=== PATIENT | female | born 1975 | race Caucasian/White ===

== ENCOUNTER → 2018-08-25 11:57 | Outpatient (CLI) | payer BC, SELFPAY ==
--- NOTE | 2018-08-25 | DI.MG.S_ITS ---
BILATERAL DIGITAL SCREENING MAMMOGRAM 3D/2D WITH CAD: 08/25/2018 CLINICAL: Routine screening. Baseline exam. Family history of breast cancer. No prior exams were available for comparison. The tissue of both breasts is heterogeneously dense. This may lower the sensitivity of mammography. Current study was also evaluated with a Computer Aided Detection (CAD) system. There is an oval focal asymmetry in the right breast at 1 o'clock middle depth. No other significant masses, calcifications, or other findings are seen in either breast. IMPRESSION: INCOMPLETE: NEEDS ADDITIONAL IMAGING EVALUATION The oval focal asymmetry in the right breast is indeterminate. Additional views with possible ultrasound are recommended. NOTE: For mammograms, a report in lay terms will be sent to the patient. Approximately 15% of breast malignancies will not be visualized mammographically. In the management of a palpable breast mass, a negative mammogram must not discourage biopsy of a clinically suspicious lesion. Electronically Signed By: Marquita roberts/sidra:08/25/2018 13:25:35 letter sent: Additional Imaging Needed ACR BI-RADS Category 0: Incomplete [id number]
== END ==
PROVIDERS: Visit Provider Nurse Practitioner Family
DX: Z12.31 Encounter for screening mammogram for malignant neoplasm of breast (principal); Z80.3 Family history of malignant neoplasm of breast
CPT/HCPCS: 77063; 77067

== ENCOUNTER → 2018-09-15 14:10 | Outpatient (CLI) | payer BC, SELFPAY ==
--- NOTE | 2018-09-15 | DI.MG.S_ITS ---
UNILATERAL RIGHT DIGITAL DIAGNOSTIC MAMMOGRAM 3D/2D WITH ADDITIONAL VIEWS: 09/15/2018 CLINICAL: Additional evaluation requested from prior study. Comparison is made to exams dated: 02/11/2011 mammogram - [facility], 02/11/2011 [facility], and 08/25/2018 mammogram - [facility]. The tissue of right breast is heterogeneously dense. This may lower the sensitivity of mammography. There is an oval low density asymmetry with an obscured and indistinct margin in the right breast at 1 o'clock middle depth. This is less prominent. No other significant masses or calcifications are seen in the breast. IMPRESSION: INCOMPLETE: NEEDS ADDITIONAL IMAGING EVALUATION The oval low density asymmetry in the right breast is indeterminate. An ultrasound is recommended. This exam was interpreted at Station ID: [id number]. NOTE: For mammograms, a report in lay terms will be sent to the patient. Approximately 15% of breast malignancies will not be visualized mammographically. In the management of a palpable breast mass, a negative mammogram must not discourage biopsy of a clinically suspicious lesion. Electronically Signed By: Frank loya/sidra:09/15/2018 14:41:12 letter sent: Need Ultrasound ACR BI-RADS Category 0: Incomplete [id number]
--- NOTE | 2018-09-15 | DI.US.S_ITS ---
LIMITED ULTRASOUND OF RIGHT BREAST: 09/15/2018 CLINICAL: Patient returns today to evaluate a density in the right breast. Comparison is made to exams dated: 09/15/2018 mammogram, 08/25/2018 mammogram - [facility], and 02/11/2011 mammogram - [facility]. Color flow and real-time ultrasound of the right breast upper inner quadrant were performed on the areas of interest. There is 0.7 cm x 0.4 cm x 0.9 cm oval complicated cyst in the right breast at 2 o'clock middle depth. This oval complicated cyst is hypoechoic with internal echoes and partially indistinct margins. This correlates with mammography findings. Color flow imaging demonstrates that there is no vascularity present. IMPRESSION: PROBABLY BENIGN The 0.7 cm x 0.4 cm x 0.9 cm oval complicated cyst in the right breast is consistent with a complicated cyst and is probably benign. A follow-up ultrasound in 6 months is recommended. A follow-up ultrasound in 6 months is recommended to demonstrate stability. This exam was interpreted at Station ID: [id number]. Electronically Signed By: Frank loya/:09/17/2018 14:04:55 letter sent: Followup Recommended Ultrasound BI-RADS: 3 Probably benign
== END ==
PROVIDERS: Visit Provider Nurse Practitioner Family
DX: R92.8 Other abnormal and inconclusive findings on diagnostic imaging of breast (principal); N60.01 Solitary cyst of right breast
CPT/HCPCS: 76642; 77065; G0279

== ENCOUNTER → 2018-09-20 19:45 | Outpatient (CLI) | payer BC, SELFPAY | PROVIDERS: Visit Provider Physician Assistant | DX: R30.0 Dysuria (principal) | CPT/HCPCS: 87210 ==

== ENCOUNTER → 2018-09-24 16:10 | Outpatient (CLI) | payer BC, SELFPAY ==
[2018-09-24 16:18] LABS: RBC Urine None Seen (0-5/HPF)
[2018-09-24 16:33] LABS: Appearance Urine UA CLEAR; Bilirubin Urine UA NEGATIVE (NEGATIVE); Color Urine UA YELLOW; Glucose Urine UA TRACE g/dL (Normal); Ketones Urine UA 2+ (NEGATIVE); Leukocyte Esterase Urine UA NEGATIVE (NEGATIVE); Nitrite Urine UA NEGATIVE (Negative); Occult Blood Urine UA NEGATIVE (Negative); Protein Urine UA NEGATIVE (Negative); Specific Gravity Urine UA 1.025 (1.000-1.035); Urobilinogen Urine UA 0.2 E.U./dL (0.2)
[2018-09-24 16:50] LABS: Bacteria Urine Few (2-10); Culture Indicated Urine Cult Not Indicated; Mucus Urine 1+ (Negative); Squamous Epithelial Cell Urine 1-5 /HPF; WBC Urine 0-1/HPF (0-5/HPF)
== END ==
PROVIDERS: PCP Nurse Practitioner Family; Visit Provider Nurse Practitioner Family
DX: N02.9 Recurrent and persistent hematuria with unspecified morphologic changes (principal)
CPT/HCPCS: 81001

== ENCOUNTER → 2019-04-05 12:33 | Outpatient (CLI) | payer BC, SELFPAY ==
--- NOTE | 2019-04-05 | DI.US.S_ITS ---
ULTRASOUND OF RIGHT BREAST: 04/05/2019 CLINICAL: 6 month follow-up of cysts. Comparison is made to exams dated: 09/15/2018 ultrasound, 09/15/2018 mammogram, 08/25/2018 mammogram - [facility], and 02/11/2011 mammogram - [facility]. Color flow and real-time ultrasound of the right breast were performed. Macias scale images of the real-time examination were reviewed. There is a stable 0.8 cm x 0.6 cm x 0.9 cm oval simple cyst in the right breast at 2 o'clock middle depth. This oval simple cyst is anechoic with posterior acoustic enhancement. Color flow imaging demonstrates that there is no vascularity present. IMPRESSION: BENIGN There is no sonographic evidence of malignancy. The stable 0.8 cm x 0.6 cm x 0.9 cm oval simple cyst in the right breast is benign. Return to annual mammogram screening schedule is recommended. Findings and recommendations were conveyed to the patient at time of exam. This exam was interpreted at Station ID: [id number]. Electronically Signed By: Brittany hess/:04/05/2019 14:59:25 letter sent: Normal Exam Ultrasound BI-RADS: 2 Benign
== END ==
PROVIDERS: PCP Nurse Practitioner Family; Visit Provider Nurse Practitioner Family
DX: R92.8 Other abnormal and inconclusive findings on diagnostic imaging of breast (principal); N60.01 Solitary cyst of right breast
CPT/HCPCS: 76642

== ENCOUNTER → 2020-07-12 16:10 | Outpatient (CLI) | payer BC, SELFPAY ==
--- NOTE | 2020-07-12 16:11 | DI.MG.S_ITS ---
BILATERAL DIGITAL SCREENING MAMMOGRAM 3D/2D WITH CAD: 07/12/2020 CLINICAL: Routine screening. Family history of breast cancer. Comparison is made to exams dated: 09/15/2018 mammogram, 08/25/2018 mammogram - [facility], and 02/11/2011 mammogram - [facility]. The tissue of both breasts is heterogeneously dense. This may lower the sensitivity of mammography. Current study was also evaluated with a Computer Aided Detection (CAD) system. No significant masses, calcifications, or other findings are seen in either breast. There has been no significant interval change. IMPRESSION: NEGATIVE There is no mammographic evidence of malignancy. A 1 year screening mammogram is recommended. This exam was interpreted at Station ID: [id number]. NOTE: For mammograms, a report in lay terms will be sent to the patient. Approximately 15% of breast malignancies will not be visualized mammographically. In the management of a palpable breast mass, a negative mammogram must not discourage biopsy of a clinically suspicious lesion. Electronically Signed By: Zeyad sewell/sidra:07/12/2020 16:57:47 letter sent: Normal Exam ACR BI-RADS Category 1: Negative [id number]
== END ==
PROVIDERS: PCP Internal Medicine; Referring Provider Internal Medicine; Visit Provider Internal Medicine
DX: Z12.31 Encounter for screening mammogram for malignant neoplasm of breast (principal); Z80.3 Family history of malignant neoplasm of breast
CPT/HCPCS: 77063; 77067

== ENCOUNTER → 2020-10-01 08:29 | Outpatient (CLI) | payer BC, SELFPAY ==
--- NOTE | 2020-10-01 09:39 | DI.CT.S_ITS ---
PROCEDURE: CT ABDOMEN PELVIS W CON INDICATIONS: Unspecified abdominal pain TECHNIQUE: After the administration of oral and intravenous contrast, 5 mm thick sections acquired from the diaphragms to the symphysis. 5 mm thick coronal and sagittal reformats were performed. For radiation dose reduction, the following was used: automated exposure control, adjustment of mA and/or kV according to patient size. COMPARISON: None. FINDINGS: Image quality: Excellent. ABDOMEN: Lung bases: Lung bases are clear. Heart size is normal. Solid organs: Liver is normal in size and enhancement. Gallbladder contains multiple isodense gallstones with internal air foci. Biliary system is non-dilated. Pancreas enhances normally. Spleen is normal in size and enhancement. No adrenal nodules. Kidneys are normal in size and enhancement, without hydronephrosis. Peritoneum and bowel: Stomach, small bowel, and colon loops are normal in caliber and wall thickness. No free fluid or air. Nodes and vessels: No retroperitoneal or mesenteric adenopathy. Aorta and inferior vena cava are normal in caliber. Miscellaneous: No ventral hernias. PELVIS: Genitourinary: Bladder wall thickness is normal. Both ovaries are visualized and contain multiple normal appearing follicles. The left ovary has a 1.6 centimeter simple cyst. Miscellaneous: No inguinal hernias or adenopathy. Bones: No suspicious bony lesions. No vertebral body compression fractures. IMPRESSION: 1. No acute abdominal or pelvic abnormality. 2. Simple cyst of the left ovary. 3. Normal appendix. 4. No nephroureteral calculi. Dictated by: Jonathan Schwartz M.D. on 10/01/2020 at 10:13 Approved by: Jonathan Schwartz M.D. on 10/01/2020 at 10:19
== END ==
PROVIDERS: PCP Nurse Practitioner Family; Referring Provider Nurse Practitioner Family; Visit Provider Nurse Practitioner Family
DX: R10.9 Unspecified abdominal pain (principal); N83.292 Other ovarian cyst, left side
CPT/HCPCS: 74177; Q9967

== ENCOUNTER → 2022-03-15 17:18 | Outpatient (CLI) | payer OTHER, SELFPAY ==
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
== END ==
PROVIDERS: PCP Nurse Practitioner Family; Referring Provider Physician Assistant; Visit Provider Physician Assistant
DX: M54.50 Low back pain, unspecified (principal)
CPT/HCPCS: 72100

== ENCOUNTER → 2022-03-26 17:28 | Outpatient (CLI) | payer OTHER, BC, SELFPAY ==
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
== END ==
PROVIDERS: PCP Nurse Practitioner Family; Referring Provider Nurse Practitioner Family; Visit Provider Nurse Practitioner Family
DX: M54.9 Dorsalgia, unspecified (principal); V89.2XXA Person injured in unspecified motor-vehicle accident, traffic, initial encounter
CPT/HCPCS: 72040; 72072

== ENCOUNTER → 2022-06-27 14:30 | Outpatient (CLI) | payer BC, SELFPAY ==
--- NOTE | 2022-06-27 14:31 | DI.MG.S_ITS ---
BILATERAL DIGITAL SCREENING MAMMOGRAM 3D/2D WITH CAD: 06/27/2022 CLINICAL: Routine screening. Family history of breast cancer. Comparison is made to exams dated: 07/12/2020 mammogram, 08/25/2018 mammogram - [facility], and 02/11/2011 mammogram - [facility]. Both breasts are heterogeneously dense, which may obscure small masses (category c / 51-75% glandular tissue). Current study was also evaluated with a Computer Aided Detection (CAD) system. There are new grouped calcifications in the left breast at 1 o'clock middle depth. No other significant masses, calcifications, or other findings are seen in either breast. IMPRESSION: INCOMPLETE: NEEDS ADDITIONAL IMAGING EVALUATION The new grouped calcifications in the left breast are indeterminate. Additional views with possible ultrasound are recommended. Based on the Tyrer Cuzick model (a risk assessment model) the patient's lifetime risk is 9.0% and her 10 year risk is 1.5%. According to the ACR, ACS, and NCCN guidelines, an annual breast MRI exam along with mammogram is recommended if the patient's lifetime risk is 20% or greater. This exam was interpreted at Station ID: [id number]. NOTE: For mammograms, a report in lay terms will be sent to the patient. Approximately 15% of breast malignancies will not be visualized mammographically. In the management of a palpable breast mass, a negative mammogram must not discourage biopsy of a clinically suspicious lesion. Electronically Signed By: Felice Luevano M.D. lc/:06/27/2022 16:56:32 letter sent: Additional Imaging Needed ACR BI-RADS Category 0: Incomplete [id number]
== END ==
PROVIDERS: PCP Internal Medicine; Referring Provider Internal Medicine; Visit Provider Internal Medicine
DX: Z13.21 Encounter for screening for nutritional disorder (principal); Z80.3 Family history of malignant neoplasm of breast; R92.1 Mammographic calcification found on diagnostic imaging of breast
CPT/HCPCS: 77063; 77067

== ENCOUNTER → 2022-07-06 09:08 | Outpatient (CLI) | payer OTHER, SELFPAY ==
--- NOTE | 2022-07-06 09:10 | DI.MRI.S_ITS ---
PROCEDURE: MR LUMBAR SPINE WO CON INDICATIONS: Dorsalgia, unspecified TECHNIQUE: Noncontrast sagittal T1 spin echo and T2 fast echo, sagittal STIR, and T2 fast spin echo through the lumbar spine. In cases with scoliosis, additional coronal T2 fast spin echo may be performed. COMPARISON: None. FINDINGS: Image quality: Excellent. Alignment and Curvature: There is normal bony alignment. Bone Marrow: Marrow is of normal overall signal. No acute vertebral body compression fractures. Spinal Cord: Conus medullaris terminates at the L1 level. Visualized cord demonstrates normal signal and size. Paraspinous Soft Tissues: No paravertebral masses. T12-L1: Normal appearance. L1-L2: Normal appearance. L2-L3: Normal appearance. L3-L4: Normal appearance. L4-L5: Normal appearance. L5-S1: Normal appearance. IMPRESSION: Normal MRI of the lumbar spine. Dictated by: Jonathan Schwartz M.D. on 07/07/2022 at 8:29 Approved by: Jonathan Schwartz M.D. on 07/07/2022 at 8:31
--- NOTE | 2022-07-06 09:10 | DI.MRI.S_ITS ---
PROCEDURE: MR THORACIC SPINE WO CON INDICATIONS: Dorsalgia, unspecified TECHNIQUE: Noncontrast sagittal T1 spine echo and T2 fast spin echo, sagittal STIR, and T2 fast spin echo through the thoracic spine. COMPARISON: None. FINDINGS: Image quality: Excellent. Alignment and Curvature: There is normal bony alignment. Bone Marrow: Marrow is of normal overall signal. No acute vertebral body compression fractures. Spinal Cord: Visualized spinal cord is normal in size and signal. Paraspinous Soft Tissues: No paravertebral masses. Miscellaneous: On axial images, central canal and foramina appear widely patent at all scanned levels. IMPRESSION: Normal MRI of the thoracic spine. Dictated by: Jonathan Schwartz M.D. on 07/07/2022 at 8:26 Approved by: Jonathan Schwartz M.D. on 07/07/2022 at 8:29
== END ==
PROVIDERS: PCP Internal Medicine; Referring Provider Internal Medicine; Visit Provider Internal Medicine
DX: N81.89 Other female genital prolapse (principal); R20.0 Anesthesia of skin; M54.9 Dorsalgia, unspecified; Z91.89 Other specified personal risk factors, not elsewhere classified
CPT/HCPCS: 72146; 72148

== ENCOUNTER → 2022-07-17 13:21 | Outpatient (CLI) | payer BC, SELFPAY ==
--- NOTE | 2022-07-17 | DI.US.S_ITS ---
ULTRASOUND OF LEFT BREAST: 07/17/2022 CLINICAL: Patient returns today to evaluate a focal asymmetry in the left breast. Comparison is made to exams dated: 07/17/2022 mammogram, 06/27/2022 mammogram, 07/12/2020 mammogram, 08/25/2018 mammogram - [facility], 02/11/2011 mammogram - [facility], and 02/11/2011 [facility]. Color flow and real-time ultrasound of the left breast were performed. Macias scale images of the real-time examination were reviewed. There are benign cysts and clustered microcysts in the left breast at 1:00 and retroareolar regions that do not correlate with mammographic calcifications. IMPRESSION: SUSPICIOUS OF MALIGNANCY There is no abnormality seen in the left breast to correspond with the mammographic calcifications at 1 o'clock. A stereotatic biopsy is recommended. Findings were conveyed by phone to the patient by Dr. Luevano. There are incidental benign cysts and clustered microcysts in the 1:00 and retroareolar regions of the brast. Leading differential considerations include fibrocystic change or DCIS. No definite layering was seen on mammographic true lateral views to diagnose milk of calcium. This exam was interpreted at Station ID: [id number]. Electronically Signed By: Felice Luevano M.D. lc/:07/17/2022 15:13:45 letter sent: Biopsy Required Ultrasound BI-RADS: 4a Low suspicion for malignancy
--- NOTE | 2022-07-17 | DI.MG.S_ITS ---
UNILATERAL LEFT DIGITAL DIAGNOSTIC MAMMOGRAM 3D/2D WITH ADDITIONAL VIEWS: 07/17/2022 CLINICAL: Additional evaluation requested from prior study. Comparison is made to exams dated: 06/27/2022 mammogram, 07/12/2020 mammogram - [facility], and 02/11/2011 mammogram - [facility]. The left breast is heterogeneously dense, which may obscure small masses (category c / 51-75% glandular tissue). There is a new 0.9 cm coarse heterogeneous calcification in the left breast at 1 o'clock middle depth 1 cm from the nipple. No other significant masses or calcifications are seen in the breast. IMPRESSION: INCOMPLETE: NEEDS ADDITIONAL IMAGING EVALUATION The new 0.9 cm coarse heterogeneous calcification in the left breast is indeterminate. An ultrasound is recommended. Based on the Tyrer Cuzick model (a risk assessment model) the patient's lifetime risk is 9.0% and her 10 year risk is 1.5%. According to the ACR, ACS, and NCCN guidelines, an annual breast MRI exam along with mammogram is recommended if the patient's lifetime risk is 20% or greater. This exam was interpreted at Station ID: [id number]. NOTE: For mammograms, a report in lay terms will be sent to the patient. Approximately 15% of breast malignancies will not be visualized mammographically. In the management of a palpable breast mass, a negative mammogram must not discourage biopsy of a clinically suspicious lesion. Electronically Signed By: Felice Luevano M.D. lc/:07/17/2022 15:04:30 ACR BI-RADS Category 0: Incomplete [id number]
== END ==
PROVIDERS: PCP Internal Medicine; Referring Provider Internal Medicine; Visit Provider Family Medicine
DX: R92.1 Mammographic calcification found on diagnostic imaging of breast (principal); N60.02 Solitary cyst of left breast
CPT/HCPCS: 76642; 77065; G0279

== ENCOUNTER 2022-07-24 11:15 | Outpatient (RCR) | payer OTHER, BC, SELFPAY ==
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
--- NOTE | 2022-06-24 09:44 | PT.OPPOC ---
Physical, Occupational & Speech Therapy At [facility] Current Diagnoses Low back pain, unspecified (06/24/22) Dorsalgia, unspecified (06/24/22) Sprain of ligaments of cervical spine, initial encounter (06/24/22) Other specified personal risk factors, not elsewhere classified (06/24/22) Visit Care Team Role Provider Type GLORIA Turner Attending Provider [employer] Bagger Primary Care Provider Referring Provider Specialty: [facility] Address: [address] [place] [address], [facility] Email: [email or web address] Plan Of Care PT-OP-T Assessment and Plan Start: 04/02/22 09:35 Freq: Status: Active Protocol: Document 06/24/22 08:52 AW (Rec: 06/24/22 09:42 AW [id number]) Physical Therapy Assessment Rehab Potential Rehabilitation Potential Good Evaluation Complexity Number of Personal Factors/Comorbidities 1-2 Number of Body Systems Impaired 3 Clinical Presentation at Evaluation Evolving Impairments Impairments Activity Tolerance,Functional Activities,Functional Mobility ,Gait,Pain,Posture,ROM,Soft Tissue Mobility,Strength,Tone Goals 4 Impairment muscle guarding and spasm of the lumbar and thoracic paraspinals, suboccipitals and left SCM Short Term Goal (STG) Yanet is able to get some relief of muscle spasm with gentle stretching and ROM as well as manual therapy techniques 06/24/22 - Neck is better. Spasm continues in mid and low back. STG Duration 4 weeks Tactical/Mobile Watch Officer Goal (LTG) Yanet presents with a overall reduction of muscle spasm and guarding and is no longer c/o shooting pain down the back of her legs 06/24/22 - No shooting pain down the legs in the past one week but still occurs occasionally LTG Duration 12 weeks 3 Impairment cervical, thoracic, and lumbar pain rated 6-8/10. Pain limits standing greater that 10 minutes and sitting greater than 30 minutes, pain is increased with walking Tactical/Mobile Watch Officer Goal (LTG) Yanet is able to tolerate 30 min of walking and sitting duration is improved to 1 hour . She has a overall reduction in pain levels 06/24/22 - Pt can walk through [employer] but has pain rest of day. Can sit up to 30 minutes as long as she changes position frequently. LTG Duration 12 weeks 2 Impairment Decreased lumbar and hip ROM with pain Tactical/Mobile Watch Officer Goal (LTG) Yanet presents with a overall improvement of lumbar and hip ROM without c/o pain 06/24/22 Progressing slowly LTG Duration 12 weeks 1 Impairment Decreased cervical ROM, muscle spasm and guarding especially the left SCM limiting pain free ROM Short Term Goal (STG) Yanet is educated on gentle cervical spine ROM to perform in pain free ROM 06/24/22 - GOAL MET STG Duration 3 weeks - GOAL MET Tactical/Mobile Watch Officer Goal (LTG) Yanet is able to return to cervical ROM that is WFL and painfree LTG Duration 12 weeks GOAL MET 06/24/22 Progress Towards Goals Progress Towards Goals Progressing Toward Goals,Slow Progress - Other Progress Comments Cervical pain is improved and ROM is substantially better. She is able to drive and look up and down without increasing pain. Pain continues in the lumber and thoracic spine which is limiting her abililty to sit and walk >15-30 minutes. She is now reporting concerning saddle anesthesia and worsening incontinence. She notices she is also having to strain more than usual to defecate, feels pelvic muscles are weak. PT has followed up with PCP to report symptoms and request consideration of advanced imaging. Assessment Summary Assessment Yanet arrived limping today and reports a very stressful weekend with her in the hospital due to an [place]. She is having most severe pain in her low back and hips, tolerates very little pressure for STM lumbar and thoracic paraspinals and QL. She was able to tolerate some gentle lumbar movement and pelvic floor stretch while lying on a hot pack. Spent the rest of today's visit assessing goals and discussing plan of care to include referral back to PCP for consideration of advanced imaging. Physical Therapy Plan Frequency and Duration Frequency of Treatment 2x/Week Duration of Treatment 3 months Plan of Care Start Date 06/24/22 Plan of Care End Date 09/23/22 Therapeutic Interventions Therapeutic Interventions Home Exercise Program, Neuromuscular Re-education, Patient/Caregiver Education, Self-Care/Home Management,Soft Tissue Mobilization, Therapeutic Exercises Modalities Cold Pack/Ice Massage,Electric Stimulation,Hot Packs Other Referrals/Consults Referrals/Consults Recommended Discuss saddle anesthesia, incontinence, and pelvic floor weakness with PCP for awareness and possible referral for advanced imaging. Emailed last week and called/ left message today. Next Visit Focus/Plan Next Note Type Treatment Note Next Visit Plan Recheck if called Dr Swanson regarding numbness pelvic region. NExt tx: Assess response to IFC, MHP, Manual and gentle. ROM HEP last tx. Continue core muscle training. POC: continue with gentle ROM, pain management, STM, core activation as tolerated Plan of Care Dates Plan of Care Start Date 06/24/22 Plan of Care End Date 09/23/22 Electronically Signed by: Kacey Garcia, PT 06/24/22 0944 If you are in agreement with this Plan of Care, please return a signed and dated copy. I have reviewed this Plan of Care and certify that the skilled therapy services above are required to meet the patient?s needs. Physician Signature Date Printed Name and Credentials Clinical Instructor Signature Printed Name and Credentials
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
== END 2022-11-05 12:14 | disposition home or self-care (01) ==
LOC: PHYS 11:15
PROVIDERS: PCP Internal Medicine; Referring Provider Internal Medicine; Visit Provider Internal Medicine
DX: M54.9 Dorsalgia, unspecified (principal); Z91.89 Other specified personal risk factors, not elsewhere classified; M54.50 Low back pain, unspecified; S13.4XXA Sprain of ligaments of cervical spine, initial encounter
CPT/HCPCS: 97014; 97110; 97140; 97161; 97535; G0283

== ENCOUNTER → 2022-08-14 10:43 | Outpatient (CLI) | payer BC, SELFPAY ==
--- NOTE | 2022-08-14 10:44 | DI.MRI.S_ITS ---
BREAST MRI OF BOTH BREASTS: 08/14/2022 CLINICAL: Left breast cancer. The patient was placed prone in a dedicated breast imaging coil. Precontrast axial STIR and 3D FLASH without fat saturation sequences were obtained. Both before and after bolus injection of contrast, sequential 1-minute axial 3D FLASH with fat saturation sequences for 3 time points, with subtraction images and maximum intensity projections (MIP's) generated. Delayed sagittal FLASH images with fat saturation were also obtained. Computer-aided detection, including computer algorithm analysis of MRI image data for lesion detection and characterization, pharmacokinetic analysis, with further physician review for interpretation, was performed. Comparison made to multiple prior studies, including but not limited to: [facility], , SPECIAL VIEW LT, 07/17/2022, 13:37. [facility], , US BREAST LT LIMITED, 07/17/2022, 14:40. [facility], , MG DIGITAL BREAST TOMOSYNTHESIS BREAST BIOPSY LEFT, 07/25/2022, 13:19. [facility], , MG BREAST SPECIMEN LEFT, 07/25/2022, 13:28. There is mild background parenchymal enhancement with numerous small foci of enhancement in both breasts. No suspicious mass or non-mass enhancement in the right breast. Left breast biopsy marker noted. No mass or suspicious enhancement in the left breast. No threshold enlarged or suspicious axillary or internal mammary lymph node. IMPRESSION: KNOWN BIOPSY PROVEN MALIGNANCY Biopsy changes in the left breast with no suspicious mass or non-mass enhancement identified. This exam was interpreted at Station ID: [id number]. Electronically Signed By: Tiago Rondon M.D. jr/:08/19/2022 08:34:16 ACR BI-RADS Category 6: Known biopsy proven malignancy [id number]
== END ==
PROVIDERS: PCP Internal Medicine; Referring Provider Internal Medicine Hematology & Oncology; Visit Provider Internal Medicine Hematology & Oncology
DX: D05.12 Intraductal carcinoma in situ of left breast (principal)
CPT/HCPCS: 77049; A9579

== ENCOUNTER → 2022-09-09 10:19 | Outpatient (CLI) | payer OTHER, SELFPAY ==
[2022-09-09 12:13] LABS: COVID19 -Nasal RAPID Negative (Negative)
== END ==
PROVIDERS: PCP Internal Medicine; Visit Provider Surgery
DX: Z01.812 Encounter for preprocedural laboratory examination (principal); Z20.822 Contact with and (suspected) exposure to COVID-19
CPT/HCPCS: 87635; C9803

== ENCOUNTER 2022-09-10 07:27 | Day surgery (SDC) | payer OTHER, SELFPAY ==
[2022-09-08 13:46] VITALS: BMI 28.7
[2022-09-10] VITALS (14 sets, daily range): BP systolic 113–143; BP diastolic 76–104; PULSE 79–92; RESP 12–20; TEMP 36.2–37; O2SAT 94–99; BMI 28.9
--- NOTE | 2022-09-10 | PATH_ITS ---
[facility] Accession Number: [id number] . 01 Material submitted: . PART A: breast - RIGHT BREAST PART B: breast - LEFT BREAST . 01 Diagnosis: A. Right Breast, Mastectomy: Intraductal papillomas (x2) with associated florid usual ductal hyperplasia. Proliferative fibrocystic change. Negative for significant atypia and malignancy. . B. Left Breast, Mastectomy: Ductal carcinoma in situ (DCIS), high nuclear grade, solid and cribriform types with comedonecrosis. - Tumor site: Upper outer, lower outer, and upper inner quadrants. - Histologic type: DCIS. - Size (extent) of DCIS: Estimated at 8 mm. - Number of blocks with DCIS: Four out of sixteen examined. - Architectural pattern: Comedo, cribriform, and solid. - Nuclear grade: Grade 3 (high). - Necrosis: Present, central. - Microcalcifications: Present in nonneoplastic tissue. - Margin status: All margins negative for DCIS (distance of DCIS from closest margin = anterior at 1.2 cm). - Nonneoplastic findings: Proliferative fibrocystic change, small intraductal papilloma, and previous biopsy site. [facility] 09/15/2022 1349 Local . 01 Electronically signed: . Marie Bell MD, Pathologist NPI- [id number] . 01 Gross description: . A. Received: In formalin, labeled with the patient's name, , and right breast. Specimen: Right simple mastectomy. Weight: 203 grams. Measurement: 4.0 cm anterior to posterior, 12.3 cm medial to lateral, and 8.9 cm superior to inferior. Skin ellipse: Present, measuring 7.3 x 5.1 cm with pink-mcpherson wrinkled unremarkable cutaneous surface. Nipple/Areola: 1.4 x 1.0 cm everted nipple with a 3.5 x 2.4 cm diameter areola. Both are unremarkable with no crusting identified. Axillary tail: Not identified. Margins: The skin ellipse is oriented by the surgeon with short superior suture, long lateral suture; the posterior surface is covered by irregular fascia. The anterior soft tissue margins are unremarkable. The anterior superior margin is inked blue, the anterior inferior margin is inked green, and the posterior margin is inked black. Sliced: From lateral to medial into twenty-one 4 mm slices. Lesions: No discrete lesions are identified. The parenchyma consists of at least 50% diffusely gritty, nodular fibrous tissue with multiple pham cystic structures identified measuring up to 0.4 cm in greatest dimension (most notably identified within slice 19). The remaining parenchyma is yellow soft unremarkable adipose tissue. The specimen was removed on 09/10/2022. Time not provided. Cold ischemic time cannot be calculated. Total fixation time is approximately 35 hours. [employer] sections are submitted as follows: A1-A2: Entire bisected nipple. A3-A4: Upper outer quadrant to include blue and black margins (slices 1 and 3; 6 and 10, respectively). A5-A6: Lower outer quadrant to include green and black margins (slices 4 and 9; 12 and 13, respectively). A7-A8: Upper inner quadrant to include blue and black margins (slices 14 and 15, 17 and 19, respectively). A9-A10: Lower inner quadrant to include green and black margins (slices 16 and 18; 19 and 21, respectively). . B. Received: In formalin, labeled with the patient's name, , and left breast. Specimen: Left simple mastectomy. Weight: 184 grams. Measurement: 2.5 cm anterior to posterior, 10.0 cm medial to lateral, and 9.7 cm superior to inferior. Skin ellipse: Present, measuring 7.6 x 3.9 cm with pink-mcpherson wrinkled unremarkable cutaneous surface. Nipple/Areola: 1.4 x 1.0 cm everted nipple with a 3.3 x 2.4 cm diameter areola. Both are unremarkable with no crusting identified. Axillary tail: Not identified. Margins: The skin ellipse is oriented by the surgeon with short superior suture, long lateral suture; the posterior surface is covered by irregular fascia. The anterior soft tissue margins are unremarkable. The anterior superior margin is inked blue, the anterior inferior margin is inked green, and the posterior margin is inked black. Sliced: From medial to lateral into seventeen 4 mm slices. Lesion: Description: No discrete lesions identified, the fibrous tissue is diffusely gritty and nodular occupying at least 50% of the cut surface while the remaining surface is yellow unremarkable adipose tissue. Biopsy site: Possible biopsy site changes are identified in slices 11 and 12, but no clip is seen. Distance to margins from possible biopsy site: 0.4 cm from the anterior superior margin, widely free of all remaining margins. The specimen was removed on 09/10/2022. Time not provided. Cold ischemic time cannot be calculated. Total fixation time is approximately 35 hours. [employer] sections are submitted as follows: B1-B2: Entire bisected nipple. B3-B4: Composite rep slice 10 medial to biopsy site. B5-B6: Composite rep slice 11, biopsy site with nearest blue margin. B7-B8: Composite rep slice 12, biopsy site. B9-B10: Composite rep slice 13, lateral to biopsy site. B11-B12: Upper inner quadrant to include blue and black margins (slices 1, 3, and 5; 6, 8, and 10, respectively). B13-B14: Lower inner quadrant to include green, black and skin margins (slices 3, 5 and 6; 8, 9 and 11, respectively). B15-B16: Lower outer quadrant to include green, black, and skin margins (slices 12, 13, and 14; 15, 16, and 17, respectively). . Case discussed with Dr. Foreman. ([id number]) /MRV 09/11/2022 1324 [facility] . 01 Pathologist provided ICD-10: D05.12 . 01 CPT . 298663, [id number] Specimen Comment: A courtesy copy of this report has been sent to [phone] Performed at: 01 [facility] [address] [place] [address], [place], [place] [id number] MD Frank Arvizu MD Phone: [phone]
[2022-09-10] MEDS: LACTATED RINGERS 1,000 ML 100 ML IV (08:02)
--- NOTE | 2022-09-10 08:31 | P.HP_ITS ---
History of Present Illness History of Present Illness Date Patient Seen: 09/10/22 Time Patient Seen: 08:31 Chief complaint: LEFT MASTECTOMY Narrative: 46-year-old woman with left breast DCIS here for elective bilateral mastectomy. Please refer to the H&P from 08/07/2022 for further detail. In the interval she has decided to proceed with bilateral mastectomy. Patient History Medical History Lower urinary tract symptoms (LUTS) Mixed incontinence PCOS (polycystic ovarian syndrome) Surgical History H/O: hysterectomy History of section Family & Social History Family History Father Cancer Diabetes mellitus Grandmother Cancer CAD (coronary artery disease) Sister Diabetes mellitus Mother Hypertension Social History: household members spouse,children Tobacco & Substance use: Smoking Status Former smoker alcohol intake never Substance Use Type does not use Meds Home Medications and Allergies Home Medications Medication Instructions Recorded Confirmed Type spironolactone 25 mg tablet 25 mg PO BID 05/22/18 09/10/22 History metformin 500 mg tablet 1,000 mg PO BID 09/20/18 09/10/22 History cholecalciferol (vitamin D3) 25 25 mcg PO DAILY 08/11/22 09/10/22 History mcg (1,000 unit) capsule (Vitamin D3) coenzyme Q10 100 mg capsule 100 mg PO DAILY 08/11/22 09/10/22 History (CoQ-10) omega-3 fatty acids 500 mg capsule 500 mg PO DAILY 08/11/22 09/10/22 History turmeric root extract 500 mg tablet 500 mg PO DAILY 09/08/22 09/10/22 History Allergies Allergy/AdvReac Type Severity Reaction Status Date / Time hydrocodone AdvReac Severe ITCHING Verified 09/10/22 07:41 Exam Vital Signs (past 8 hours): - 09/10/22 07:49 Temperature 97.1 F L Pulse Rate 81 Respiratory Rate 15 Blood Pressure 125/85 Pulse Oximetry 99 Oxygen Delivery Method Room Air Oxygen Delivery Method Room Air Narrative Exam Narrative: General adult woman alert oriented no acute distress Chest nonlabored respiration Assessment & Plan Assessment and plan (1) Ductal carcinoma in situ (DCIS) of left breast: Status: Acute Assessment & Plan narrative: 46-year-old woman with left breast DCIS here for bilateral mastectomy. We had a long discussion in regards to treatment options. She was initially considering lumpectomy followed by radiation but is requesting a bilateral mastectomy as she will likely undergo delayed reconstruction. Overview of the operation was discussed with the patient. Operative risks including bleeding, infection, need for further procedure dependent on pathology findings nerve injury were discussed. Her questions have been answered and she is in agreement with this plan. Time Spent With Patient Critical Care time: I spent a total of [] minutes of critical care time on this patient's care tod ay; this time is exclusive of procedural time.
[2022-09-10] MEDS: SCOPOLAMINE 1 PATCH TOP (08:42)
[2022-09-10] MEDS: CEFAZOLIN 2 GM/100 ML PREMIX 100 ML IV (08:52)
--- NOTE | 2022-09-10 09:13 | SUR.OPER ---
Supine on padded OR bed, head on gel donut, arms secured on padded arm boards at <90 degrees abduction, legs uncrossed, safety belt at thigh, tape over blanket over lower legs, pillow under knees.
[2022-09-10] MEDS: BUPIVACAINE LIPOSOME 266 MG/20 ML VIAL INJ (10:26)
[2022-09-10] MEDS: BUPIVACAINE 0.25% (PF) VIAL 30 ML INJ (10:27)
--- NOTE | 2022-09-10 11:25 | P.OP_ITS ---
Operative Date/Time/Diagnoses Date of procedure: 09/10/22 Time of procedure: 11:25 Pre-op diagnosis: Left breast ductal carcinoma in Situ Post-op diagnosis: same Procedure & Clinicians Procedure: Bilateral simple mastectomy Same procedure as scheduled: Yes Indications: 46-year-old woman with ductal carcinoma of the left breast who elects to proceed with bilateral mastectomy Surgeon: Valeriy Guzman Click Yes if Unassisted: Yes Anesthesia Type: General Operative Notes Findings: Fibrocystic disease prominent in the inferior aspect of each breast. Specimen(s): other (Right and left breast both marked short stitch superior long stitch lateral) Applied: drain(s) Estimated Blood Loss (mL): 50 Procedure in detail: Patient was brought to the operating room placed supine on the table. Bilateral lower extremity compression devices were applied. She received 2 g of Ancef sadie or to skin incision. She was intubated with an endotracheal tube. She was then prepped and draped in sterile fashion. Time-out was performed. Beginning with the right breast, an elliptical incision around the nipple areola complex was made with the knife. The subcutaneous tissue was divided with electrocautery. Skin flaps were raised to separate the breast tissue from the skin along the subdermal plexus. The dissection was extended superior to the clavicle, medial to the sternum, inferior the the inframamary fold and lateral to the anterior border of the latisimus dorsi. Next the breast tissue was from the underlying pectoralis fascia. The breast was passed off the field marked short stitch superior long stitch lateral. A 19 [place] Kobe drain was placed into the cavity and secured. The wound was copiously irrigated and homeostasis was ensured. The mastectomy was closed with 3 0 Vicryl for the subcutaneous tissue and the skin was closed with 4 0 Monocryl followed by the application of Dermabond. An elliptical incision around the nipple areola complex was made with the knife of the left breast. The subcutaneous tissue was divided with electrocautery. Skin flaps were raised to separate the breast tissue from the skin along the subdermal plexus. The dissection was extended superior to the clavicle, medial to the sternum, inferior the the inframamary fold and lateral to the anterior border of the latisimus dorsi. Next the breast tissue was from the underlying pectoralis fascia. The breast was passed off the field marked short stitch superior long stitch lateral. A 19 [place] Kobe drain was placed into the cavity and secured. The wound was copiously irrigated and homeostasis was ensured. The mastectomy was closed with 3 0 Vicryl for the subcutaneous tissue and the skin was closed with 4 0 Monocryl followed by the application of Dermabond. . Complications: none Post-operative Condition: stable Disposition: same day surgery
[2022-09-10] MEDS: OXYCODONE/ACETAMINOPHEN 5/325 TABLET 1 TAB PO ×2 (11:33→13:25)
== END 2022-09-10 13:32 | disposition home or self-care (01) ==
PROVIDERS: PCP Internal Medicine; Referring Provider Surgery; Visit Provider Surgery
PROC: 0HTV0ZZ Resection of Bilateral Breast, Open Approach (ICD-10-PCS; CPT 19303; principal; 2022-09-10 08:45)
DX: D05.12 Intraductal carcinoma in situ of left breast (principal); N60.12 Diffuse cystic mastopathy of left breast; N60.11 Diffuse cystic mastopathy of right breast
CPT/HCPCS: 19303; 82962; C9290; J0690; J1100; J1885; J2250; J2405; J2704; J3010

== ENCOUNTER 2023-03-17 17:12 | Observation (INO) | payer OTHER, SELFPAY ==
[2023-03-17] VITALS (19 sets, daily range): BP systolic 102–175; BP diastolic 57–99; PULSE 49–80; RESP 11–23; TEMP 36.7; O2SAT 92–99; BMI 32.0
[2023-03-17] MEDS: MORPHINE 4 MG/ML INJ IV (18:26)
[2023-03-17] MEDS: ONDANSETRON 4 MG/2 ML INJ IV (18:26)
[2023-03-17] MEDS: PANTOPRAZOLE 40 MG VIAL IV (18:27)
[2023-03-17 18:32] LABS: Add Manual Diff / Slide Review NO; Basophils Absolute Auto 100 /uL (0-100); Basophils Percent Auto 0.9 % (0-2); Eosinophils Absolute Auto 200 /uL (0-450); Eosinophils Percent Auto 1.7 % (2-4); Hematocrit 43.6 % (36-46); Hemoglobin 15.3 g/dL (12.0-16.0); Lymphocytes Absolute Auto 2300 /uL (1100-4500); Lymphocytes Percent Auto 23.9 % (25-40); Mean Corpuscular Hemoglobin 28.7 PG (26-34); Mean Corpuscular Volume 81.9 fL (80-100); Monocytes Absolute Auto 600 /uL (0-900); Monocytes Percent Auto 6.4 % (3-14); Neutrophils Absolute Auto 6500 /uL (1500-7000); Neutrophils Percent Auto 67.1 % (50-75); Platelet Count 279 X10^3/uL (150-400); Red Blood Cell Count 5.32 X10^6/uL (4.0-5.2); Red Cell Distribution Width 14.1 % (11.6-14.8); White Blood Cell Count 9.7 X10^3/uL (4.5-11.0)
--- NOTE | 2023-03-17 18:44 | DI.US.S_ITS ---
PROCEDURE: US ABDOMEN LIMITED INDICATIONS: ABDOMINAL PAIN RADIATING TO BACK TECHNIQUE: Real-time focused scanning was performed of the abdomen, with image documentation. COMPARISON: None. FINDINGS: The liver demonstrates increased parenchymal echogenicity compatible with fatty infiltration. There are 2 hypoechoic areas in the left hepatic lobe with the larger measuring up to 3.4 by 5 x 2.9 cm and the smaller region measuring 1.5 x 0.8 x 0.9 cm. The findings are nonspecific but suggestive of focal fatty sparing. Multiple gallstones are demonstrated in the gallbladder including a nonmobile stone measuring 1.4 x 0.8 cm in the gallbladder neck. The gallbladder is distended. No wall thickening or pericholecystic fluid. No intra or extrahepatic biliary ductal dilatation. Visualized pancreas appears unremarkable sonographically. IMPRESSION: 1. Cholelithiasis including an apparent impacted stone in the gallbladder neck with distention of the gallbladder. Although no gallbladder wall thickening or pericholecystic fluid are identified, developing cholecystitis cannot be excluded. 2. Increased hepatic echogenicity consistent with steatosis with heterogeneous regions in the left hepatic lobe likely representing focal fatty sparing. However, consider follow-up CT or MRI to exclude a mass. Dictated by: Frank Hicks M.D. on 03/17/2023 at 21:29 Approved by: Frank Hicks M.D. on 03/17/2023 at 21:33
[2023-03-17 18:45] LABS: Creatine Kinase 32 U/L (30-135)
[2023-03-17 18:46] LABS: Alanine Aminotransferase 22 IU/L (<35); Albumin 4.5 g/dL (3.5-5.0); Albumin Globulin Ratio 1.3 (1.0-2.8); Alkaline Phosphatase 96 U/L (38-126); Aspartate Aminotransferase 27 IU/L (14-36); BUN Creatinine Ratio 19.7 (6-22); Bilirubin Total 0.6 mg/dL (0.2-1.3); Blood Urea Nitrogen 13 mg/dL (7-17); Calcium 10.8 mg/dL (8.4-10.2); Carbon Dioxide 23 mmol/L (22-32); Chloride 104 mmol/L (98-107); Estimated Glomerular Filt Rate > 60 mL/min (>60); Globulin 3.4 g/dL (1.7-4.1); Glucose 109 mg/dL (70-100); HEMOLYSIS < 15 (0-50); Lipase 58 U/L (23-300); Potassium 4.2 mmol/L (3.4-5.1); Sodium 136 mmol/L (137-145); Total Protein 7.9 g/dL (6.3-8.2)
[2023-03-17] MEDS: KETOROLAC 30 MG/ML VIAL 15 MG IV (18:50)
[2023-03-17 18:53] LABS: NT-proBNP (BNP-Adult 18+) 42 pg/mL (<125)
[2023-03-17 18:57] LABS: Troponin I < 0.012 ng/mL (0.01-0.034)
[2023-03-17 19:06] LABS: D Dimer 616 ng/ml (<500)
[2023-03-17 19:58] LABS: Pregnancy Test Serum,Qual Negative (Negative)
--- NOTE | 2023-03-17 20:45 | ED_ITS ---
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 Patient presents with complaint of lower abdominal pain that then started to radiate upper abdomen and then into her chest today. She states it started about 0 300 this morning kind of lower abdominal back flank pain and then working its way up. And then into her chest and back. No fevers or chills. She states she got very sweaty. She had nausea and vomiting but after she was given pain medications here. She was burping a lot throughout the day. No diarrhea no constipation. No dysuria, urgency or frequency. She denies any shortness of breath with any of this episodes. No syncope. No new swelling in extremities. Patient states she is on propranolol for hypertension. She is had bilateral mastectomy, hysterectomy with her cervix removed for cancer and has planned removal of tubes and ovaries in April. Allergic to hydrocodone. No tobacco, alcohol or illicit. Mariah Redding is her primary care. Dr. Guzman is her general surgeon. Related Data Home Medications Medication Instructions Recorded Confirmed spironolactone 25 mg tablet 25 mg PO BID 05/22/18 01/22/23 metformin 500 mg tablet 1,000 mg PO BID 09/20/18 01/22/23 cholecalciferol (vitamin D3) 25 25 mcg PO DAILY 08/11/22 01/22/23 mcg (1,000 unit) capsule (Vitamin D3) coenzyme Q10 100 mg capsule 100 mg PO DAILY 08/11/22 01/22/23 (CoQ-10) omega-3 fatty acids 500 mg capsule 500 mg PO DAILY 08/11/22 01/22/23 turmeric root extract 500 mg tablet 500 mg PO DAILY 09/08/22 01/22/23 Previous Rx's Medication Instructions Recorded acetaminophen 325 mg capsule 650 mg PO QID PRN pain #60 caps 09/10/22 (Tylenol) docusate sodium 100 mg capsule 100 mg PO BID #30 caps 09/10/22 (Colace) ibuprofen 200 mg tablet 400 mg PO Q6H #60 tabs 09/10/22 sodium,potassium,mag sulfates 17.5 See Rx Instructions PO .COMPLEX 03/05/23 gram-3.13 gram-1.6 gram oral soln #354 mL (Suprep Bowel Prep Kit) Allergies Allergy/AdvReac Type Severity Reaction Status Date / Time hydrocodone AdvReac Severe ITCHING Verified 03/17/23 17:43 Review of Systems Review of Systems ROS Unobtainable: All systems reviewed & are unremarkable except as noted in HPI and below Patient History Medical History Lower urinary tract symptoms (LUTS) Mixed incontinence PCOS (polycystic ovarian syndrome) Surgical History H/O: hysterectomy History of section Family History Father Cancer Diabetes mellitus Grandmother Cancer CAD (coronary artery disease) Sister Diabetes mellitus Mother Hypertension Social History marital status: number of children: 3 household members: spouse and children occupational status: employed Smoking Status: Former smoker Tobacco: How many years used: 20 alcohol intake: never substance use type: does not use caffeine: Yes Smoking Status: Former smoker alcohol intake frequency: 0-2 drinks per day Substance Use Type: does not use Exam Narrative Exam Narrative: GENERAL: Alert and oriented x three, female in mild distress. Patient had received pain medications prior to. HEENT: Head normocephalic, atraumatic, EOMI, pupils reactive, face symmetric, moist mucous membranes NECK: Supple, full range of motion CARDIOVASCULAR: Regular rate and rhythm without murmurs, rubs or gallops. RESPIRATORY: Breath sounds equal bilaterally, no wheezes rales or rhonchi. ABDOMEN: Soft, nontender. Nondistended. Normoactive bowel sounds all 4 quadrants. No guarding or rebound, rigidity, no mass : No CVA tenderness EXTREMITIES: Normal range of motion, no clubbing or edema. Neurovascularly intact NEUROLOGICAL: Cranial nerves II through XII grossly intact. Moving all extremities SKIN: Warm, dry, no petechiae, no rashes or lesions. Initial Vital Signs Initial Vital Signs: Vital Signs Temperature 98.0 F 03/17/23 17:39 Pulse Rate 78 03/17/23 17:39 Respiratory Rate 19 03/17/23 17:39 Blood Pressure 175/99 H 03/17/23 17:39 Pulse Oximetry 98 03/17/23 17:39 Oxygen Delivery Method Room Air 03/17/23 17:39 Course Orders Ordered: ED Orders 03/17/23 21:06 CT angio chest abdomen pelvis Stat Piperacillin Sod/Tazobactam (Sod 3.375 gm/ Sodium Chloride) 100 mls @ 25 mls/hr IV Q8H [facility] Last Admin: 03/18/23 04:17 Dose: 25 mls/hr Documented By: CAMRYN Ketorolac Tromethamine (Ketorolac 30 Mg/Ml Vial) 15 mg IV Q6H [facility] Stop: 03/23/23 04:57 Ondansetron HCl (Ondansetron 4 Mg Odt) 4 mg PO NOW PRN PRN Reason: Nausea And Vomiting Ondansetron HCl (Ondansetron 4 Mg/2 Ml Inj) 4 mg IV NOW PRN PRN Reason: Nausea And Vomiting Last Admin: 03/17/23 18:26 Dose: 4 mg Documented By: NR Discontinued Medications Piperacillin Sod/Tazobactam (Sod 4.5 gm/ Sodium Chloride) 100 mls @ 25 mls/hr IV Q8H [facility] Last Admin: 03/18/23 00:02 Dose: Not Given Documented By: Piperacillin Sod/Tazobactam (Sod 4.5 gm/ Sodium Chloride) 100 mls @ 200 mls/hr IV NOW ONE Stop: 03/18/23 00:14 Last Infusion: 03/18/23 00:45 Dose: 0 mls/hr Documented By: Admin: 03/18/23 00:05 Dose: 200 mls/hr Documented By: Ketorolac Tromethamine (Ketorolac 30 Mg/Ml Vial) 15 mg IV NOW ONE Stop: 03/17/23 18:44 Last Admin: 03/17/23 18:50 Dose: 15 mg Documented By: NR Morphine Sulfate (Morphine 4 Mg/Ml Inj) 4 mg IV NOW ONE Stop: 03/17/23 18:05 Last Admin: 03/17/23 18:26 Dose: 4 mg Documented By: NR Pantoprazole Sodium (Pantoprazole 40 Mg Vial) 40 mg IV NOW ONE Stop: 03/17/23 18:18 Last Admin: 03/17/23 18:27 Dose: 40 mg Documented By: NR Vital Signs Vital signs: Vital Signs - 8 hr 03/17/23 21:35 03/17/23 22:00 03/17/23 22:30 Pulse Rate 65 53 L 52 L Respiratory Rate 14 Blood Pressure Pulse Oximetry 99 98 95 03/17/23 23:00 03/17/23 23:30 03/17/23 23:34 Pulse Rate 49 L 51 L 64 Respiratory Rate 14 13 22 Blood Pressure Pulse Oximetry 92 93 93 03/17/23 23:34 Pulse Rate Respiratory Rate Blood Pressure 102/64 Pulse Oximetry MDM - Abdominal Pain Lab Data 03/17/23 18:12 03/17/23 18:12 Labs: Lab Results 03/17/23 03/17/23 03/17/23 Range/Units 18:12 18:12 18:12 WBC 9.7 (4.5-11.0) X10^3/uL RBC 5.32 H (4.0-5.2) X10^6/uL Hgb 15.3 (12.0-16.0) g/dL Hct 43.6 (36-46) % MCV 81.9 (80-100) fL MCH 28.7 (26-34) PG MCHC 35.0 (30-36) % RDW 14.1 (11.6-14.8) % Plt Count 279 (150-400) X10^3/uL Neut % (Auto) 67.1 (50-75) % Lymph % (Auto) 23.9 L (25-40) % Redwood % (Auto) 6.4 (3-14) % Eos % (Auto) 1.7 L (2-4) % Baso % (Auto) 0.9 (0-2) % Neut # (Auto) 6500 (8394-1463) /uL Lymph # (Auto) 2300 (1905-2900) /uL Redwood # (Auto) 600 (0-900) /uL Eos # (Auto) 200 (0-450) /uL Baso # (Auto) 100 (0-100) /uL D-Dimer (<500) ng/ml Sodium 136 L (137-145) mmol/L Potassium 4.2 (3.4-5.1) mmol/L Chloride 104 (98-107) mmol/L Carbon Dioxide 23 (22-32) mmol/L BUN 13 (7-17) mg/dL Creatinine 0.66 (0.52-1.04) mg/dL Estimated GFR > 60 (>60) mL/min BUN/Creatinine Ratio 19.7 (6-22) Glucose 109 H (70-100) mg/dL Calcium 10.8 H (8.4-10.2) mg/dL Total Bilirubin 0.6 (0.2-1.3) mg/dL AST 27 (14-36) IU/L ALT 22 (<35) IU/L Alkaline Phosphatase 96 (38-126) U/L Total Creatine Kinase 32 (30-135) U/L CK-MB (CK-2) TNP CK-MB (CK-2) Rel Index TNP Troponin I < 0.012 (0.01-0.034) ng/mL NT-Pro-B Natriuret Pep (<125) pg/mL Total Protein 7.9 (6.3-8.2) g/dL Albumin 4.5 (3.5-5.0) g/dL Globulin 3.4 (1.7-4.1) g/dL Albumin/Globulin Ratio 1.3 (1.0-2.8) Lipase 58 (23-300) U/L Serum , Qual (Negative) 03/17/23 03/17/23 03/17/23 Range/Units 18:12 18:12 18:12 WBC (4.5-11.0) X10^3/uL RBC (4.0-5.2) X10^6/uL Hgb (12.0-16.0) g/dL Hct (36-46) % MCV (80-100) fL MCH (26-34) PG MCHC (30-36) % RDW (11.6-14.8) % Plt Count (150-400) X10^3/uL Neut % (Auto) (50-75) % Lymph % (Auto) (25-40) % Redwood % (Auto) (3-14) % Eos % (Auto) (2-4) % Baso % (Auto) (0-2) % Neut # (Auto) (3853-8575) /uL Lymph # (Auto) (7925-3132) /uL Redwood # (Auto) (0-900) /uL Eos # (Auto) (0-450) /uL Baso # (Auto) (0-100) /uL D-Dimer 616 H (<500) ng/ml Sodium (137-145) mmol/L Potassium (3.4-5.1) mmol/L Chloride (98-107) mmol/L Carbon Dioxide (22-32) mmol/L BUN (7-17) mg/dL Creatinine (0.52-1.04) mg/dL Estimated GFR (>60) mL/min BUN/Creatinine Ratio (6-22) Glucose (70-100) mg/dL Calcium (8.4-10.2) mg/dL Total Bilirubin (0.2-1.3) mg/dL AST (14-36) IU/L ALT (<35) IU/L Alkaline Phosphatase (38-126) U/L Total Creatine Kinase (30-135) U/L CK-MB (CK-2) CK-MB (CK-2) Rel Index Troponin I (0.01-0.034) ng/mL NT-Pro-B Natriuret Pep 42 (<125) pg/mL Total Protein (6.3-8.2) g/dL Albumin (3.5-5.0) g/dL Globulin (1.7-4.1) g/dL Albumin/Globulin Ratio (1.0-2.8) Lipase (23-300) U/L Serum , Qual Negative (Negative) Imaging Data US - abdomen: Radiologist's Impression: Yanet Cope??She/Her/Hers??47??F??1975 ? Allergy/Adv: hydrocodone (More??) Close Chest/Abdomen/Pelvis CTA (Signed) Frank Hicks - 03/17/23 Abdomen Ultrasound (Signed) Frank Hicks - 03/17/23 Breast MRI (Signed) Tiago Rondon - 08/14/22 Outside DI 07/25/22 Mammogram, Additional Views (Signed) Felice Luevano - 07/17/22 Breast Ultrasound (Signed) Felice Luevano - 07/17/22 Thoracic Spine MRI (Signed) Jonathan Schwartz - 07/06/22 Lumbar Spine MRI (Signed) Jonathan Schwartz - 07/06/22 Mammogram Screening (Signed) Felice Luevano - 06/27/22 Thoracic Spine X-Ray (Signed) Colton Gracia - 03/26/22 Cervical Spine X-Ray (Signed) Colton Gracia - 03/26/22 Lumbar Spine X-Ray (Signed) Huang Orlando - 03/15/22 Abdomen/Pelvis CT (Signed) EfrenJonathan - 10/01/20 Mammogram Screening (Signed) Zeyad Chavarria - 07/12/20 Breast Ultrasound (Signed) Brittany Moore - 04/05/19 Mammogram, Additional Views (Signed) Frank Hicks - 09/15/18 Breast Ultrasound (Signed) Frank Hicks - 09/15/18 Mammogram Screening (Addendum) Marquita Antoine - 08/25/18 Launch?[place] [address] Ultrasound Report Signed Patient: Yanet Cope MR#: [id number] : 1975 Acct:[id number] Age/Sex: 47 / F Date of Service: 03/17/23 Loc: ED Accession Number: [id number] ?? Procedure: US abdomen limited Ordering Provider: Yolanda Mills D.O. PROCEDURE: US ABDOMEN LIMITED ? INDICATIONS:? ABDOMINAL PAIN RADIATING TO BACK ? TECHNIQUE:? Real-time focused scanning was performed of the abdomen, with image documentation.? ? COMPARISON:? None. ? FINDINGS:? ? The liver demonstrates increased parenchymal echogenicity compatible with fatty infiltration.? There are 2 hypoechoic areas in the left hepatic lobe with the larger measuring up to 3.4 by 5 x 2.9 cm and the smaller region measuring 1.5 x 0.8 x 0.9 cm.? The findings are nonspecific but suggestive of focal fatty sparing. ? Multiple gallstones are demonstrated in the gallbladder including a nonmobile stone measuring 1.4 x 0.8 cm in the gallbladder neck.? The gallbladder is distended.? No wall thickening or pericholecystic fluid. ? No intra or extrahepatic biliary ductal dilatation. ? Visualized pancreas appears unremarkable sonographically. ? IMPRESSION:? ? 1. Cholelithiasis including an apparent impacted stone in the gallbladder neck with distention of the gallbladder.? Although no gallbladder wall thickening or pericholecystic fluid are identified, developing cholecystitis cannot be excluded. ? 2. Increased hepatic echogenicity consistent with steatosis with heterogeneous regions in the left hepatic lobe likely representing focal fatty sparing.? However, consider follow-up CT or MRI to exclude a mass.? ? ? Dictated by: Frank Hicks M.D. on 03/17/2023 at 21:29 ? ? Approved by: Frank Hicks M.D. on 03/17/2023 at 21:33?? CT chest/abd/pelvis: Radiologist's Impression: Close Chest/Abdomen/Pelvis CTA (Signed) Frank Hicks - 03/17/23 Abdomen Ultrasound (Signed) Frank Hicks - 03/17/23 Launch?[facility] [address] [address] [address] Scan Report Signed Patient: Yanet Cope MR#: [id number] : 1975 Acct:[id number] Age/Sex: 47 / F Date of Service: 03/17/23 Loc: ED Accession Number: [id number] ?? Procedure: CT angio chest abdomen pelvis Ordering Provider: Yolanda Mills D.O. PROCEDURE:? CT ANGIO CHEST ABDOMEN PELVIS ? INDICATIONS:? abd pain radiated up to chest ? TECHNIQUE:? Precontrast 5 mm thick sections acquired from the lung apices to the iliac crests.? After the administration of intravenous contrast, 2.5 mm thick sections again acquired from the lung apices to the iliac crests.? Maximum intensity projection (MIP) oblique sagittal and coronal reformats were then acquired.? For radiation dose reduction, the following was used:? automated exposure control.? ? COMPARISON:? [facility], CT, CT ABDOMEN PELVIS W CON, 10/01/2020, 9:25.? [facility], US, US ABDOMEN LIMITED, 03/17/2023, 19:50. ? FINDINGS:? Image quality:? Excellent.? ? AORTA:? Noncontrast images demonstrate no evidence of intramural hematoma.? The aorta is normal in caliber and contour without intimal flaps to suggest dissection.? There is conventional branching of the aortic arch.? The visualized great vessels are normal in caliber and appear patent.? The celiac, superior mesenteric, and inferior mesenteric arteries are patent.? There are single renal arteries bilaterally which also appear patent.? The common, external, and internal iliac arteries appear patent with scattered mild atherosclerotic plaque.? The common femoral and visualized proximal superficial femoral arteries appear patent. ? CHEST:? Lower Neck: No lymphadenopathy by size criteria. Thyroid:? Visualized thyroid demonstrates no discrete nodules. Axillae: No lymphadenopathy by size criteria. Chest Wall:? Unremarkable.? ? Lungs and Airways:? No acute consolidation.? There is a right upper lobe 0.3 cm nodule on series 5 image 25. The trachea and central airways are patent. Pleura: No pneumothorax or pleural effusions.? ? Heart: Heart size is normal.? No pericardial effusion. Thoracic Vessels: The pulmonary arteries are normal in size without filling defects to suggest central pulmonary embolism.? Mediastinum and Kristi: No lymphadenopathy by size criteria. Esophagus: No wall thickening. No hiatal hernia. ? ABDOMEN: Liver:? No mass lesion. Gallbladder:? Multiple gallstones are demonstrated within a mildly distended gallbladder. ?There is slight wall thickening and hyperemia.? No pericholecystic fluid. Biliary ducts:? No biliary ductal dilatation.? ? Pancreas:? Unremarkable.? ? Spleen:? Normal in size.? ? Adrenal Glands:? No adrenal nodules.? ? Kidneys and Ureters:? No hydronephrosis.? ? ? Stomach and Bowel:? Stomach, small bowel loops, and colon are normal in caliber and wall thickness.? The appendix is normal.? Peritoneum:? No abnormal intraperitoneal fluid.? No free air.? ? Ventral Wall: ? No hernia.? Abdominal Nodes:? No retroperitoneal or mesenteric adenopathy by size criteria.? Vessels:? Aorta and inferior vena cava are normal in size.? ? PELVIS: Pelvic Organs:? There is a peripherally enhancing cyst in the right ovary measuring up to 2.0 cm consistent with a corpus luteum.? There is a left ovarian cyst measuring up to 2.1 cm. The uterus is surgically absent.? ? Bladder:? Unremarkable.? ? Pelvic Nodes: No enlarged lymph nodes.? Miscellaneous: No inguinal hernias are seen. ? ? ? Bones:? Visualized osseous structures demonstrate no suspicious focal lesions. ? ? IMPRESSION:? ? 1. No evidence of aortic aneurysm or dissection. ? 2. No central pulmonary embolism. ? 3. Cholelithiasis with distention of the gallbladder as well as slight wall thickening and hyperemia.? The findings may reflect developing cholecystitis.? Dictated by: Frank Hicks M.D. on 03/17/2023 at 22:40 ? ? Approved by: Frank Hciks M.D. on 03/17/2023 at 22:44?? ECG Data Attestation: I personally reviewed and interpreted this ECG as follows: Prior ECG tracings: not available for review Interpretation: Sinus rhythm rate of 67 LA 154 QRS is 74 and QTC of 414. No acute ST changes. MDM Narrative Medical decision making narrative: This is a 47-year-old female who comes with complaint of abdominal pain that then radiated up to her chest abdomen. CBC, coags and chemistries do not show major change. Dimer was 616. Troponin negative. BNP 42. Discussed with patient prelim ultrasound does show a stone stuck in the neck of the gallbladder likely source of pain but with the pattern of pain would likely benefit from CT chest abdomen pelvis angio. Patient is agreeable with this. She does have risk factor she has cancer although being treated and had bilateral mastectomy, hysterectomy with cervix removed. Patient is much more comfortable after Toradol and dose of morphine. Imaging shows impacted stone 1.4 x 8.8 cm. Questionable change in the liver, CT angio was obtained as patient's pattern of pain was concerning, aneurysm or dissection no PE cholelithiasis with slightly wall thickening and hyperemia, liver shows no mass lesion. Spoke with Dr. Guzman who accepts for admission. Plan for OR later this aft erwin, will cover with Cici. Discharge Plan Departure Patient Disposition: Admitted as Observation Clinical Impression: Impacted gallstone of gallbladder Admit Date/Time: 03/17/23 23:41 Admit Provider: Valeriy Guzman
--- NOTE | 2023-03-17 21:06 | DI.CT.S_ITS ---
PROCEDURE: CT ANGIO CHEST ABDOMEN PELVIS INDICATIONS: abd pain radiated up to chest TECHNIQUE: Precontrast 5 mm thick sections acquired from the lung apices to the iliac crests. After the administration of intravenous contrast, 2.5 mm thick sections again acquired from the lung apices to the iliac crests. Maximum intensity projection (MIP) oblique sagittal and coronal reformats were then acquired. For radiation dose reduction, the following was used: automated exposure control. COMPARISON: [facility], CT, CT ABDOMEN PELVIS W CON, 10/01/2020, 9:25. [facility], US, US ABDOMEN LIMITED, 03/17/2023, 19:50. FINDINGS: Image quality: Excellent. AORTA: Noncontrast images demonstrate no evidence of intramural hematoma. The aorta is normal in caliber and contour without intimal flaps to suggest dissection. There is conventional branching of the aortic arch. The visualized great vessels are normal in caliber and appear patent. The celiac, superior mesenteric, and inferior mesenteric arteries are patent. There are single renal arteries bilaterally which also appear patent. The common, external, and internal iliac arteries appear patent with scattered mild atherosclerotic plaque. The common femoral and visualized proximal superficial femoral arteries appear patent. CHEST: Lower Neck: No lymphadenopathy by size criteria. Thyroid: Visualized thyroid demonstrates no discrete nodules. Axillae: No lymphadenopathy by size criteria. Chest Wall: Unremarkable. Lungs and Airways: No acute consolidation. There is a right upper lobe 0.3 cm nodule on series 5 image 25. The trachea and central airways are patent. Pleura: No pneumothorax or pleural effusions. Heart: Heart size is normal. No pericardial effusion. Thoracic Vessels: The pulmonary arteries are normal in size without filling defects to suggest central pulmonary embolism. Mediastinum and Kristi: No lymphadenopathy by size criteria. Esophagus: No wall thickening. No hiatal hernia. ABDOMEN: Liver: No mass lesion. Gallbladder: Multiple gallstones are demonstrated within a mildly distended gallbladder. There is slight wall thickening and hyperemia. No pericholecystic fluid. Biliary ducts: No biliary ductal dilatation. Pancreas: Unremarkable. Spleen: Normal in size. Adrenal Glands: No adrenal nodules. Kidneys and Ureters: No hydronephrosis. Stomach and Bowel: Stomach, small bowel loops, and colon are normal in caliber and wall thickness. The appendix is normal. Peritoneum: No abnormal intraperitoneal fluid. No free air. Ventral Wall: No hernia. Abdominal Nodes: No retroperitoneal or mesenteric adenopathy by size criteria. Vessels: Aorta and inferior vena cava are normal in size. PELVIS: Pelvic Organs: There is a peripherally enhancing cyst in the right ovary measuring up to 2.0 cm consistent with a corpus luteum. There is a left ovarian cyst measuring up to 2.1 cm. The uterus is surgically absent. Bladder: Unremarkable. Pelvic Nodes: No enlarged lymph nodes. Miscellaneous: No inguinal hernias are seen. Bones: Visualized osseous structures demonstrate no suspicious focal lesions. IMPRESSION: 1. No evidence of aortic aneurysm or dissection. 2. No central pulmonary embolism. 3. Cholelithiasis with distention of the gallbladder as well as slight wall thickening and hyperemia. The findings may reflect developing cholecystitis. Dictated by: Frank Hicks M.D. on 03/17/2023 at 22:40 Approved by: Frank Hicks M.D. on 03/17/2023 at 22:44
[2023-03-18] VITALS (21 sets, daily range): BP systolic 101–173; BP diastolic 54–97; PULSE 50–84; RESP 10–20; TEMP 36–36.8; O2SAT 91–100; BMI 32.0
--- NOTE | 2023-03-18 | PATH_ITS ---
[facility] Accession Number: [id number] No. of containers..02 Tissue . 01 Material submitted: . PART A: gallbladder - GALLBLADDER PART B: fallopian tube - BILATERAL FALLOPIAN TUBES AND OVARIES . 01 Diagnosis: A. Gallbladder, Cholecystectomy: Acute and chronic cholecystitis and cholelithiasis. Benign pericystic lymph node. Hepatic bed fragment with portal chronic inflammation. Negative for dysplasia and neoplasia. . B. Right and Left Fallopian Tubes and Ovaries, Bilateral Salpingo-oophorectomy: Fallopian tubes with benign paratubal cysts. Ovaries with cortical stromal hyperplasia, focally nodular, surface epithelial glandular inclusions, cystic follicles, and cystic corpus luteum. Negative for neoplasia. [facility] 03/23/2023 1601 Local . 01 Electronically signed: . Marie Bell MD, Pathologist NPI- [id number] . 01 Gross description: . A. Received in formalin labeled with the patient's name, and gallbladder consists of a single, heavily disrupted gallbladder measuring 8.3 x 3.7 x 2.3 cm. The serosal surface is pink to yellow and wrinkled with a single full thickness defect, 2.0 cm in greatest dimension. A single pink-mcpherson lymph node candidate is noted measuring 0.8 x 0.6 x 0.4 cm (inked black and bisected). Also noted is an adherent fragment of mcpherson-brown soft tissue measuring 2.3 x 1.5 x 1.3 cm. The ragged resection margin is inked green. The cystic duct is clamped and is occluded by a green calculus, 1.8 x 1.9 x 1.5 cm (inked blue). The gallbladder is opened to reveal approximately 1 mL of brown viscous sludge and multiple green multifaceted calculi aggregating to 4.0 x 3.8 x 1.7 cm. The mucosal surface is mcpherson-brown and trabecular with no polyps or lesions seen. The wall measures up to 0.6 cm in thickness. Keg Header sections are submitted as follows: A1: Cystic duct margin/bisected lymph node candidate. A2: Adherent fragment of brown-mcpherson soft tissue. A3: Sections of gallbladder wall. B. Received in formalin labeled with the patient's name, and bilateral fallopian tubes and ovaries consist of two unoriented, violaceous, fimbriated fallopian tubes with attached corresponding ovaries. The first fallopian tube measures 4.8 cm in length and 0.7 cm in diameter. A mcpherson to brown serous fluid-filled paratubal cyst is noted measuring 2.4 x 1.9 x 1.8 cm. The corresponding white-mcpherson, rubbery ovary measures 3.3 x 2.3 x 2.0 cm and weighs 9 grams. The external surfaces are inked blue. The ovary is sectioned to reveal a white whorled nodule measuring 2.0 x 1.3 x 1.0 cm. The remaining compressed ovarian parenchyma shows a corpus luteal cyst (0.7 cm) and a smooth-lined cortical cyst (0.7 cm). The second violaceous fimbriated fallopian tube measures 3.9 cm in length and 1.0 cm in diameter. A serous fluid-filled, smooth-lined paratubal cyst is noted measuring 1.0 cm in greatest dimension. The corresponding white-red, rubbery ovary measures 3.4 x 2.9 x 2.4 cm and weighs 13 grams. The external surfaces are inked black. The ovary is sectioned to reveal a white whorled cut surface measuring 2.1 x 2.0 x 1.7 cm. Multiple smooth-lined cortical cysts are noted measuring up to 0.5 cm in greatest dimension. A hemorrhagic corpus luteal cyst is noted, 1.3 cm in greatest dimension. The remaining pink-mcpherson, homogenous ovarian parenchyma shows no further abnormalities. Keg Header sections are submitted as follows: B1-B2: First fallopian tube, fimbriae entirely submitted, in relation to paratubal cyst and ovarian parenchyma. B3-B5: First ovary. B6-B7: Second fallopian tube, fimbriae and paratubal cyst entirely submitted. B8-B10: Second ovary. (:[id number]) /MRV 03/20/2023 1357 Local . 01 Pathologist provided ICD-10: K81.1 . 01 CPT . 465076, [id number] Specimen Comment: A courtesy copy of this report has been sent to [phone] Performed at: 01 [facility] [address] [place] [address], [place], [place] [id number] MD Frank Arvizu MD Phone: [phone]
[2023-03-18] MEDS: PIPERACILLIN/TAZO 4.5 GM in SODIUM CHLORIDE 0.9% 100 ML IV (00:05)
[2023-03-18] MEDS: PIPERACILLIN/TAZO 3.375 GM in SODIUM CHLORIDE 0.9% 100 ML IV ×2 (04:17→11:51)
[2023-03-18] MEDS: KETOROLAC 30 MG/ML VIAL 15 MG IV ×2 (05:40→11:49)
[2023-03-18] MEDS: SODIUM CHLORIDE 0.9% 1,000 ML 100 ML IV (08:52)
--- NOTE | 2023-03-18 10:36 | CM.DANOTE ---
DCP: Patient is a 47 yo F here for impacted gallstone of gallbladder. Payer: [facility] and self pay PCP: Mariah Redding SENIOR RECRUITMENT CONSULTANT reviewed EMR. SENIOR RECRUITMENT CONSULTANT entered room and introduced self and role. Patient appeared A/Ox4 and was accompanied by sister. Patient reports being independent at baseline with all ADLs and drives POV. Patient reports she likely will have no needs from this SENIOR RECRUITMENT CONSULTANT upon d/c. Patient reports she was told she was going to d/c later today after her surgery. Patient lives at home with supportive spouse, Gus ([phone]). Gus will transport patient home upon d/c. From nursing staff in rounds, surgery is scheduled for 1445. Plan: Anticipate d/c home to family later today/when medically stable. No needs anticipated from CM team. CM Team will continue to follow. ERICK James Discharge Planning/Care Management CM Discharge Assessment Start: 03/18/23 10:33 Freq: Status: Active Protocol: Document 03/18/23 10:34 (Rec: 03/18/23 10:36 [id number]) Discharge Planning Assessment Assigned Boom Conveyor Operator ERICK James DPOA/Assigned Designee Name Gus Cope (spouse) Contact Information [phone] Advance Directives? No History Provided By Patient,Medical Record Prior Living Arrangements House Household Members spouse,children Type of transporation used prior to Drives own vehicle admit Independent with ADL's Yes Is patient alert and oriented? Yes Barriers to Discharge No Comment surgery scheduled for 1445 today, 03/18/23 Discharge Plan Home Transportation Arrangement spouse will transport Whiteboard Updated in Patient Room with Yes name and ext. # of Boom Conveyor Operator Review Status In Process Next Review Type Continued Stay Review
--- NOTE | 2023-03-18 11:06 | P.HP_ITS ---
History of Present Illness History of Present Illness Date Patient Seen: 03/18/23 Time Patient Seen: 11:13 Chief complaint: Chest pain, back pain, excessive burping Narrative: 47F presented to the [facility] emergency department with severe sudden onset of right sided abdominal and back pain. She had associated nausea and bloating. At admission WBC 10, Hct 44, TB0.6, AST 27, ALT 22. CTA C/A/P demonstrates a large gallstone impacted in the neck of the gallbladder, confirmed on abdominal ultrasound. No common duct dilation. She has had prior episodes of postprandial abdominal bloating/discomfort. Prior abdominal surgery includes section. She is scheduled for a laparoscopic removal of tubes and ovaries with Chely Bautista in 1 month. [facility] Medical History Lower urinary tract symptoms (LUTS) Mixed incontinence PCOS (polycystic ovarian syndrome) Surgical History H/O: hysterectomy History of section Family History Father Cancer Diabetes mellitus Grandmother Cancer CAD (coronary artery disease) Sister Diabetes mellitus Mother Hypertension Social History marital status: number of children: 3 household members: spouse and children occupational status: employed Smoking Status: Former smoker Tobacco: How many years used: 20 alcohol intake: never substance use type: does not use caffeine: Yes Meds Home Medications and Allergies Home Medications Medication Instructions Recorded Confirmed Type spironolactone 25 mg tablet 25 mg PO BID 05/22/18 03/18/23 History metformin 500 mg tablet 1,000 mg PO BID 09/20/18 03/18/23 History cholecalciferol (vitamin D3) 25 25 mcg PO DAILY 08/11/22 03/18/23 History mcg (1,000 unit) capsule (Vitamin D3) coenzyme Q10 100 mg capsule 100 mg PO DAILY 08/11/22 03/18/23 History (CoQ-10) omega-3 fatty acids 500 mg capsule 500 mg PO DAILY 08/11/22 03/18/23 History turmeric root extract 500 mg tablet 500 mg PO DAILY 09/08/22 03/18/23 History acetaminophen 325 mg capsule 650 mg PO QID PRN pain #60 caps 09/10/22 03/18/23 Rx (Tylenol) docusate sodium 100 mg capsule 100 mg PO BID #30 caps 09/10/22 03/18/23 Rx (Colace) ibuprofen 200 mg tablet 400 mg PO Q6H #60 tabs 09/10/22 03/18/23 Rx acetaminophen 325 mg capsule 650 mg PO QID PRN pain #60 caps 03/18/23 Rx (Tylenol) oxycodone 5 mg tablet 5 mg PO Q6H PRN pain #20 tabs 03/18/23 Rx Allergies Allergy/AdvReac Type Severity Reaction Status Date / Time hydrocodone AdvReac Severe ITCHING Verified 03/17/23 17:43 Exam Vital Signs (past 8 hours): - 03/18/23 09:00 Temperature 97.3 F L Pulse Rate 55 L Respiratory Rate 17 Blood Pressure 101/54 L Pulse Oximetry 99 Oxygen Flow Rate 0 Oxygen Delivery Method Room Air Oxygen Flow Rate 0 Narrative Exam Narrative: Gen-Adult woman alert and oriented Chest-Nonlabored resp Abdomen-Tender RUQ no peritonitis Extremities warm well perfused Objective Labs 03/17/23 18:12 03/17/23 18:12 Labs: Laboratory Results - last 24 hr 03/17/23 03/17/23 03/17/23 18:12 18:12 18:12 WBC 9.7 RBC 5.32 H Hgb 15.3 Hct 43.6 MCV 81.9 MCH 28.7 MCHC 35.0 RDW 14.1 Plt Count 279 Neut % (Auto) 67.1 Lymph % (Auto) 23.9 L [place] % (Auto) 6.4 Eos % (Auto) 1.7 L Baso % (Auto) 0.9 Neut # (Auto) 6500 Lymph # (Auto) 2300 [place] # (Auto) 600 Eos # (Auto) 200 Baso # (Auto) 100 D-Dimer Sodium 136 L Potassium 4.2 Chloride 104 Carbon Dioxide 23 BUN 13 Creatinine 0.66 Estimated GFR > 60 BUN/Creatinine Ratio 19.7 Glucose 109 H Calcium 10.8 H Total Bilirubin 0.6 AST 27 ALT 22 Alkaline Phosphatase 96 Total Creatine Kinase 32 CK-MB (CK-2) TNP CK-MB (CK-2) Rel Index TNP Troponin I < 0.012 NT-Pro-B Natriuret Pep Total Protein 7.9 Albumin 4.5 Globulin 3.4 Albumin/Globulin Ratio 1.3 Lipase 58 Serum , Qual 03/17/23 03/17/23 03/17/23 18:12 18:12 18:12 WBC RBC Hgb Hct MCV MCH MCHC RDW Plt Count Neut % (Auto) Lymph % (Auto) [place] % (Auto) Eos % (Auto) Baso % (Auto) Neut # (Auto) Lymph # (Auto) [place] # (Auto) Eos # (Auto) Baso # (Auto) D-Dimer 616 H Sodium Potassium Chloride Carbon Dioxide BUN Creatinine Estimated GFR BUN/Creatinine Ratio Glucose Calcium Total Bilirubin AST ALT Alkaline Phosphatase Total Creatine Kinase CK-MB (CK-2) CK-MB (CK-2) Rel Index Troponin I NT-Pro-B Natriuret Pep 42 Total Protein Albumin Globulin Albumin/Globulin Ratio Lipase Serum , Qual Negative Assessment & Plan Assessment and plan (1) Impacted gallstone of gallbladder: Status: Acute Assessment & Plan narrative: 47 y.o woman with symptoms and radiographic findings consistent with acute c holecystitis. We discussed management options recommended that we proceed with laparoscopic cholecystectomy. Overview of the operation was discussed. I aisha a diagram to illustrate the relevant anatomy. Operative risks including hemorrhage, infection, biliary tract injury, conversion to open, embolism, heart attack, stroke and were discussed. Questions have been answered. We have arranged for her laparoscopic tube and over removal to be performed conjointly with this case. Laparoscopic cholecystectomy
--- NOTE | 2023-03-18 12:55 | P.HPOB_ITS ---
History of Present Illness History of Present Illness Narrative: Yanet Cope is a 47 year old female 2 para 1103 who presented last evening with acute cholecystitis. She is scheduled to have a laparoscopic Cholecystectomy later this afternoon. She was scheduled to have bilateral tubes and ovaries removed laparoscopic in April due to an ER positive left breast cancer. [facility] Medical History Lower urinary tract symptoms (LUTS) Mixed incontinence PCOS (polycystic ovarian syndrome) Surgical History H/O: hysterectomy History of section Family History Father Cancer Diabetes mellitus Grandmother Cancer CAD (coronary artery disease) Sister Diabetes mellitus Mother Hypertension Social History marital status: number of children: 3 household members: spouse and children occupational status: employed Smoking Status: Former smoker Tobacco: How many years used: 20 alcohol intake: never substance use type: does not use caffeine: Yes Meds Home Medications and Allergies Home Medications Medication Instructions Recorded Confirmed Type spironolactone 25 mg tablet 25 mg PO BID 05/22/18 03/18/23 History metformin 500 mg tablet 1,000 mg PO BID 09/20/18 03/18/23 History cholecalciferol (vitamin D3) 25 25 mcg PO DAILY 08/11/22 03/18/23 History mcg (1,000 unit) capsule (Vitamin D3) coenzyme Q10 100 mg capsule 100 mg PO DAILY 08/11/22 03/18/23 History (CoQ-10) omega-3 fatty acids 500 mg capsule 500 mg PO DAILY 08/11/22 03/18/23 History turmeric root extract 500 mg tablet 500 mg PO DAILY 09/08/22 03/18/23 History acetaminophen 325 mg capsule 650 mg PO QID PRN pain #60 caps 09/10/22 03/18/23 Rx (Tylenol) docusate sodium 100 mg capsule 100 mg PO BID #30 caps 09/10/22 03/18/23 Rx (Colace) ibuprofen 200 mg tablet 400 mg PO Q6H #60 tabs 09/10/22 03/18/23 Rx acetaminophen 325 mg capsule 650 mg PO QID PRN pain #60 caps 03/18/23 Rx (Tylenol) oxycodone 5 mg tablet 5 mg PO Q6H PRN pain #20 tabs 03/18/23 Rx Allergies Allergy/AdvReac Type Severity Reaction Status Date / Time hydrocodone AdvReac Severe ITCHING Verified 03/17/23 17:43 Exam Vital Signs (past 8 hours): - 03/18/23 09:00 03/18/23 12:01 03/18/23 12:01 Temperature 97.3 F L 98.2 F Pulse Rate 55 L 50 L Respiratory Rate 17 16 Blood Pressure 101/54 L 105/69 Pulse Oximetry 99 98 98 Oxygen Delivery Method Room Air Oxygen Flow Rate 0 0 0 Oxygen Delivery Method Room Air Oxygen Flow Rate 0 Narrative Exam Narrative: HEENT: No thyromegaly, no anterior cervical or supraclavicular lymphadenopathy. Lungs:Clear to auscultation bilaterally, no wheezes. Cardiovascular: Regular rate and rhythm, no murmurs, rubs, or gallops. Abdomen: Well-healed Pfannenstiel scars. No hepatosplenomegaly. No masses palpable. Right upper quadrant tenderness. External genitalia: Normal Vagina: Normal Cervix: Absent Bimanual exam: Uterus absent. No adnexal masses or tenderness. Extremities: No edema Objective Labs 03/17/23 18:12 03/17/23 18:12 Labs: Laboratory Results - last 24 hr 03/17/23 03/17/23 03/17/23 18:12 18:12 18:12 WBC 9.7 RBC 5.32 H Hgb 15.3 Hct 43.6 MCV 81.9 MCH 28.7 MCHC 35.0 RDW 14.1 Plt Count 279 Neut % (Auto) 67.1 Lymph % (Auto) 23.9 L [place] % (Auto) 6.4 Eos % (Auto) 1.7 L Baso % (Auto) 0.9 Neut # (Auto) 6500 Lymph # (Auto) 2300 [place] # (Auto) 600 Eos # (Auto) 200 Baso # (Auto) 100 D-Dimer Sodium 136 L Potassium 4.2 Chloride 104 Carbon Dioxide 23 BUN 13 Creatinine 0.66 Estimated GFR > 60 BUN/Creatinine Ratio 19.7 Glucose 109 H Calcium 10.8 H Total Bilirubin 0.6 AST 27 ALT 22 Alkaline Phosphatase 96 Total Creatine Kinase 32 CK-MB (CK-2) TNP CK-MB (CK-2) Rel Index TNP Troponin I < 0.012 NT-Pro-B Natriuret Pep Total Protein 7.9 Albumin 4.5 Globulin 3.4 Albumin/Globulin Ratio 1.3 Lipase 58 Serum , Qual 03/17/23 03/17/23 03/17/23 18:12 18:12 18:12 WBC RBC Hgb Hct MCV MCH MCHC RDW Plt Count Neut % (Auto) Lymph % (Auto) [place] % (Auto) Eos % (Auto) Baso % (Auto) Neut # (Auto) Lymph # (Auto) [place] # (Auto) Eos # (Auto) Baso # (Auto) D-Dimer 616 H Sodium Potassium Chloride Carbon Dioxide BUN Creatinine Estimated GFR BUN/Creatinine Ratio Glucose Calcium Total Bilirubin AST ALT Alkaline Phosphatase Total Creatine Kinase CK-MB (CK-2) CK-MB (CK-2) Rel Index Troponin I NT-Pro-B Natriuret Pep 42 Total Protein Albumin Globulin Albumin/Globulin Ratio Lipase Serum , Qual Negative Assessment & Plan Assessment & Plan narrative: Assessment: 47-year-old 2 para 1103 with ER positive invasive left breast cancer Scheduled for laparoscopic cholecystectomy due to acute cholecystitis Plan: Will remove tubes and ovaries at the same time as the laparoscopic cholecystectomy The risks, benefits, and alternatives to the procedure were explained to the patient. The risks including bleeding, infection, injury to the bowel, bladder, or ureters. She understands these risks and agrees to proceed. A full par Q was held and consent form was signed. Time Spent With Patient Time with patient: less than 30 minutes
--- NOTE | 2023-03-18 13:00 | PM.PREOP ---
Pre-operative Note COVID-19 Criteria for continued procedure: Non-surgical alternatives not available or appropriate per current SOC Interval Note History & Physical reviewed/Exam performed by Physician: Yes Changes to H&P: No H&P completed within 30 days and has changed as indicated here:: 03/18/23
--- NOTE | 2023-03-18 13:41 | PC.NURSE ---
Pt to OR via w/c with chart by SALES RECRUITER for surgery.
[2023-03-18] MEDS: LACTATED RINGERS 1,000 ML 42 ML IV (13:53)
[2023-03-18] MEDS: ACETAMINOPHEN 325 MG TABLET 975 MG PO (13:55)
[2023-03-18] MEDS: PREGABALIN 75 MG CAPSULE PO (13:56)
[2023-03-18] MEDS: SCOPOLAMINE 1 PATCH TOP (13:56)
--- NOTE | 2023-03-18 14:51 | SUR.OPER ---
Lithotomy on padded OR bed. Rollingstone Pad Positioner under torso. Head on pillow, arms padded and tucked at sides. Legs secured in padded yellow fins stirrups.
[2023-03-18] MEDS: BUPIVACAINE 0.25% (PF) 30 ML, EPINEPHrine 0.15 MG INJ (14:57)
--- NOTE | 2023-03-18 16:21 | P.OP_ITS ---
Operative Date/Time/Diagnoses Date of procedure: 03/18/23 Time of procedure: 16:21 Pre-op diagnosis: Acute cholecystitis Post-op diagnosis: same Procedure & Clinicians Procedure: Laparoscopic cholecystectomy Same procedure as scheduled: Yes Indications: 47-year-old woman with symptoms and radiographic findings consistent with acute cholecystitis. Surgeon: Valeriy Guzman [employer] Repairer: Carlos Harris Anesthesia Type: General Operative Notes Findings: Edematous gallbladder. Critical view of safety established. Large gallstone impacted within the neck gallbladder. Specimen(s): other (Gallbladder) Estimated Blood Loss (mL): 50 Procedure in detail: The patient was placed supine on the table and bilateral lower extremity compression devices were applied. Anesthesia was induced they were intubated with an endotracheal tube and received Zosyn. They were positioned into lithotomy position and appropriately padded. A time-out was performed. They were prepped and draped in sterile fashion. An infraumbilical incision was made. The fascia was elevated incised and the abdomen was entered atra umatically. A blunt tip 12mm balloon trocar was then inserted, pneumoperitoneum was established and inspection of the abdomen demonstrated no evidence of injury. They were placed head up and right side up and then a 11 mm port was placed high in the epigastrium and two 5mm in the right upper quadrant. The gallbladder was edematous and there was a large stone tightly impacted into the neck. The gallbladder was grasped by the fundus and retracted over the liver and retracted laterally by the infundibulum. Using electrocautery the lateral plane between the gallbladder and the liver was opened towards the fundus. The gallbladder was then retracted laterally and the medial plane was developed in the same manner. With the gallbladder mobilized the bottom of the cystic plate was visualized. The hepatocystic triangle was meticulosly skeletonized with blunt dissection of fat and fibrous tissue from both the front and the back. Only two structures were then clearly seen entering the gal lbladder the cystic duct and the cystic artery. With the critical view of safety fully established the cystic duct was clipped twice proximally and once distally using the 10 mm Weck hemoclip applied under direct visualization and then sharply divided. The cystic artery was divided in the same fashion. The gallbladder was removed from the liver bed using electro cautery. The liver bed was then inspected for hemostasis and this was achieved. The abdomen was irrigated with sterile saline and inspection was made that showed the clips in good position. The specimen was removed using Endo-Catch. At this point Dr. Bautista proceeded with the laparoscopic removal of tubes and ovaries. Please refer to her dictation for further detail. Complications: none Post-operative Condition: stable Disposition: same day surgery
[2023-03-18] MEDS: HYDROMORPHONE 2 MG INJ IV ×3 (16:38→16:55)
--- NOTE | 2023-03-18 16:51 | PM.GYNOP.1 ---
Operative Date/Time/Diagnoses Date of procedure: 03/18/23 Time of procedure: 16:51 Pre-op diagnosis: ER positive breast cancer Post-op diagnosis: same Procedure & Clinicians Procedure: Procedures Operation Date: 03/18/23 14:45 Actual Procedure Side Surgeon p Laparoscopic Cholecystectomy Valeriy Guzman MD s Laparoscopic Salpingo-oophorectomy Bilateral Rosario Bautista MD Indications: ER positive breast cancer Surgeon: Rosario Bautista Anesthesia Type: General and Local Operative Notes Findings: Left paratubal cyst Pelvic adhesions Bilateral adnexal adhesions Normal ovaries Closure Type: primary Specimen(s): left tube & ovary and right tube & ovary Estimated blood loss (mL): 5 Blood products transfused: none Procedure in detail: The patient was opened per note by Dr. Valeriy Guzman. A moistened sponge stick was placed into the vagina. The 12 mm trocar was replaced in the umbilical incision and the balloon insufflated. The abdomen was insufflated with 3 L of CO2. Another incision was made 4 cm left lateral to the umbilicus after 6 cc of 0.5% Marcaine with epinephrine were injected and a 5 mm incision was made. A 5 mm trocar was placed under direct visualization. A probe was used to identify both ovaries. There were adhesions in the pelvis and these were taken down with the power seal. The right tube and ovary were grasped with an atraumatic grasper. Using the power seal, the infundibulopelvic ligament on the right side was cauterized and cut with the power seal. Hemostasis was achieved. The tubes and ovary were placed into the right lower quadrant. On the left side there were some adhesions in the left adnexa which were taken down with the power seal. The left infundibulopelvic ligament was cauterized and cut with the power seal. Hemostasis was achieved. The camera was moved to the right lateral incision. A small bag was placed through the umbilical incision and both tubes and ovaries were placed into the bag. The balloon was deflated on the 12 mm umbilical trocar and it was removed. The bag was brought through the umbilical incision without difficulty. The fascia was closed on the umbilical incision using 0 Vicryl in a running fashion. Two simple interrupted sutures with 3-0 Vicryl were placed in the subcutaneous layer. All of the incisions were closed with 4-0 Monocryl in a subcuticular fashion. Steri-Strips and Allevyn dressings were placed. The moistened sponge stick was removed from the vagina. Sponge, lap, and instrument counts were correct x2. The patient tolerated the procedure well, and was taken to PACU in stable condition. Complications: none Post-operative Condition: stable Disposition: PACU Plan for aftercare: To acute care after recovery
[2023-03-18] MEDS: hydrOXYzine 50 MG/ML INJ 25 MG IM (16:59)
[2023-03-18] MEDS: OXYCODONE IR 5 MG TABLET PO (21:10)
[2023-03-18] MEDS: ACETAMINOPHEN 325 MG TABLET 650 MG PO (21:10)
[2023-03-19] VITALS: O2SAT 95
[2023-03-19] MEDS: KETOROLAC 30 MG/ML VIAL 15 MG IV (01:58)
[2023-03-19 03:00] VITALS: PULSE 78; RESP 16; O2SAT 96
[2023-03-19 04:00] VITALS: O2SAT 95
[2023-03-19] MEDS: OXYCODONE IR 5 MG TABLET PO (05:41)
[2023-03-19] MEDS: ACETAMINOPHEN 325 MG TABLET 650 MG PO (05:41)
--- NOTE | 2023-03-19 08:44 | CM.DPC ---
DCP Discharge Home Per Surgeon, pt tolerated procedure well and medically stable to d/c home today with outpt f/u and no identified barriers to discharge. Family plans to provide transport home today. Per RN, no concerns noted at this time. Plan: Patient to d/c home today via family POV and outpt f/u and no further SW needs at this time. ERICK Lees
--- NOTE | 2023-03-19 09:15 | PC.NURSE ---
Day shift: Discharge orders received at 0830. Went over discharge instructions with patient and answered all questions. Patient and patient's spouse stated understanding. Patient left via wheelchair with spouse and patient's spouse at 0915. PIV d/c'ed at discharge.
== END 2023-03-19 09:16 | disposition home or self-care (01) ==
LOC: ED 23:39 → AC 23:41
PROVIDERS: Emergency Medicine; Obstetrics & Gynecology; Admitting Provider Surgery; Emergency Provider Emergency Medicine; PCP Internal Medicine; Visit Provider Surgery
PROC: 0FT44ZZ Resection of Gallbladder, Percutaneous Endoscopic Approach (ICD-10-PCS; CPT 47562; principal; 2023-03-18 14:45)
PROC: 0UT24ZZ Resection of Bilateral Ovaries, Percutaneous Endoscopic Approach (ICD-10-PCS; CPT 58661; 2023-03-18 14:45)
DX: K80.12 Calculus of gallbladder with acute and chronic cholecystitis without obstruction (principal); Z40.02 Encounter for prophylactic removal of ovary(s); C50.912 Malignant neoplasm of unspecified site of left female breast; Z17.0 Estrogen receptor positive status [ER+]; N83.8 Other noninflammatory disorders of ovary, fallopian tube and broad ligament
CPT/HCPCS: 47562; 58661; 36415; 71275; 74174; 76705; 80053; 81003; 82550; 83690; 83880; 84484; 84703; 85025; 85379; 93005; 93010; 96365; 96366; 96375; 96376; 99232; 99284; G0378; C9113; J0171; J1100; J1170; J1885; J2250; J2270; J2405; J2543; J2704; J3010; J3410; Q9967

== ENCOUNTER 2023-06-05 11:11 | Day surgery (SDC) | payer OTHER, SELFPAY ==
[2023-03-18 00:52] VITALS: BMI 32.0
--- NOTE | 2023-06-04 18:49 | PM.HP.1 ---
History of Present Illness History of Present Illness Date Patient Seen: 06/05/23 Time Patient Seen: 11:35 Chief complaint: Screening Colonoscopy Narrative: The patient presents for colorectal screening. They have never had any previous examination for such. No personal or family history of colon cancer. On further history denies any recent gastrointestinal symptoms. No nausea, vomiting, abdominal pain, loss of appetite, unexplained weight loss, change in bowel habits, or blood per rectum. [facility] Medical History Lower urinary tract symptoms (LUTS) Mixed incontinence PCOS (polycystic ovarian syndrome) Surgical History H/O: hysterectomy History of section Family History Father Cancer Diabetes mellitus Grandmother Cancer CAD (coronary artery disease) Sister Diabetes mellitus Mother Hypertension Social History marital status: number of children: 3 household members: spouse and children occupational status: employed Smoking Status: Former smoker Tobacco: How many years used: 20 alcohol intake: never substance use type: does not use caffeine: Yes Meds Home Medications and Allergies Home Medications Medication Instructions Recorded Confirmed Type acetaminophen 325 mg capsule 650 mg PO QID PRN pain #60 caps 09/10/22 04/20/23 Rx (Tylenol) ibuprofen 200 mg tablet 400 mg PO Q6H #60 tabs 09/10/22 04/20/23 Rx propranolol 20 mg tablet 20 mg PO BID 04/06/23 04/20/23 History clonidine HCl 0.1 mg tablet 0.1 mg PO BEDTIME #30 tabs 05/07/23 05/07/23 Rx Allergies Allergy/AdvReac Type Severity Reaction Status Date / Time hydrocodone AdvReac Severe ITCHING Verified 04/09/23 15:09 Exam Narrative Exam Narrative: General adult woman alert oriented no acute distress Chest nonlabored respiration Abdomen soft nontender nondistended Assessment & Plan Assessment & Plan narrative: The patient requires colorectal screening and colonoscopy is recommended. Technical details were discussed. Risks, benefits, alternatives explained. Risks including but not limited to myocardial infarction, aspiration, bleeding, pain, missed lesion, incomplete examination, need for further radiographic studies, colonic perforation, and need for major abdominal surgery were discussed. All questions were answered to their satisfaction, and they are in agreement with this plan.
[2023-06-05 11:27] VITALS: BP 143/92; PULSE 75; RESP 17; TEMP 36.6; O2SAT 99; BMI 33.8
[2023-06-05] MEDS: LACTATED RINGERS 1,000 ML 200 ML IV (11:41)
[2023-06-05 12:29] VITALS: BP 170/93; PULSE 75; RESP 25; TEMP 36.3; O2SAT 97
--- NOTE | 2023-06-05 12:29 | PM.OP.COLON ---
Operative Date/Time/Diagnoses Date of procedure: 06/05/23 Time of procedure: 12:29 Pre-op diagnosis: Colorectal screening Post-op diagnosis: same Procedure & Clinicians Study performed: Colonoscopy Same procedure as scheduled: Yes Indications: 47-year-old woman here for routine screening colonoscopy Surgeon: Valeriy Guzman Procedure Notes Procedure in detail: The history and physical was performed/updated and the patient is ASA class is 2. The procedure was discussed in detail with the patient. Potential risks complications including infection, bleeding, missed diagnosis, perforation, need for surgery, and were explained. Their questions were answered and informed consent was obtained. Patient was brought to the procedure room and placed standard monitoring equipment. The patient's vital signs were monitored continuously throughout the entire procedure. Prior to starting time-out was performed. The patient was placed in the left lateral recumbent position. Procedural sedation was administered by anesthesia. Examination began with a thorough inspection of the perianal area there was no evidence of fissures, fistulae, external hemorrhoids or cutaneous malignancy. The colonoscopy scope was then placed into the anal canal and was advanced to the cecum, which was identified by the ileocecal valve, the appendiceal orifice and the confluence of the taenia. The scope was then slowly withdrawn examining colon thoroughly in all directions, irrigating it of any residual stool. Normal colonoscopy. No masses, polyps, or inflammation. Mild diverticulosis within the sigmoid colon and grade 1 internal hemorrhoids. The patient tolerated the procedure well. They will be discharged once criteria are met. The prep was of good/excellent quality. The withdrawl time was 6 minutes. Specimen(s): none sent Impression: Normal colonoscopy Post-procedure Recommendations: Colonoscopy in 10 years Disposition: same day surgery
[2023-06-05 12:34] VITALS: BP 159/95; PULSE 71; RESP 20; O2SAT 98
[2023-06-05 12:40] VITALS: BP 133/88; PULSE 69; RESP 17; O2SAT 99
[2023-06-05] MEDS: PROPRANOLOL 10 MG TABLET 20 MG PO (12:44)
[2023-06-05 12:45] VITALS: BP 151/79; PULSE 67; RESP 10; O2SAT 100
== END 2023-06-05 12:59 | disposition home or self-care (01) ==
PROVIDERS: PCP Internal Medicine; Referring Provider Surgery; Visit Provider Surgery
PROC: 0DJD8ZZ Inspection of Lower Intestinal Tract, Via Natural or Artificial Opening Endoscopic (ICD-10-PCS; CPT 45378; principal; 2023-06-05 12:15)
DX: Z12.11 Encounter for screening for malignant neoplasm of colon (principal); K57.30 Diverticulosis of large intestine without perforation or abscess without bleeding; K64.0 First degree hemorrhoids
CPT/HCPCS: 45378; J2704

== ENCOUNTER → 2024-06-01 09:50 | Outpatient (CLI) | payer OTHER, SELFPAY ==
[2023-03-18 00:52] VITALS: BMI 32.0
--- NOTE | 2024-06-01 09:51 | DI.RAD.S_ITS ---
PROCEDURE: XR ANKLE LT MIN 3V INDICATIONS: Pain in left ankle and joints of left foot TECHNIQUE: 3 views of the ankle were acquired. COMPARISON: None. FINDINGS: Bones: No fractures or dislocations. Ankle mortise is normally aligned on nonweightbearing view. No suspicious bony lesions. Soft tissues: No tibiotalar joint effusion. Achilles tendon appears normal. IMPRESSION: No acute bony abnormality or significant effusion. Dictated by: Edson Narvaez M.D. on 06/01/2024 at 16:44 Approved by: Edson Narvaez M.D. on 06/01/2024 at 16:45
== END ==
PROVIDERS: PCP Internal Medicine; Referring Provider Internal Medicine; Visit Provider Internal Medicine
DX: M25.572 Pain in left ankle and joints of left foot (principal); M25.472 Effusion, left ankle
CPT/HCPCS: 73610

== ENCOUNTER → 2024-10-15 16:19 | Outpatient (CLI) | payer OTHER, SELFPAY ==
[2023-03-18 00:52] VITALS: BMI 32.0
== END ==
PROVIDERS: PCP Internal Medicine; Referring Provider Nurse Practitioner Family; Visit Provider Nurse Practitioner Family
DX: R30.0 Dysuria (principal)
CPT/HCPCS: 87077; 87086

== ENCOUNTER → 2025-07-17 07:23 | Outpatient (CLI) | payer OTHER, SELFPAY ==
[2023-03-18 00:52] VITALS: BMI 32.0
--- NOTE | 2025-07-17 07:26 | DI.US.S_ITS ---
US axillary only rt: 07/17/2025. BI-RADS: 2 CLINICAL: 49-year old female for right diagnostic breast ultrasound. Patient with a history of left breast cancer status post bilateral mastectomy who presents for a right axillary lump. PRIOR EXAMS: 08/14/2022, 07/25/2022, 07/17/2022, 06/27/2022, 07/12/2020, 04/05/2019, 09/15/2018, 08/25/2018. ULTRASOUND TECHNIQUE: Real-time pham scale and color doppler imaging of the area of clinical interest was performed with image documentation. Exam is limited to the right axilla. ULTRASOUND FINDINGS Right: Axilla: There are multiple normal-appearing lymph nodes. No abnormal lymph nodes are seen in the axilla. There is no suspicious sonographic finding. IMPRESSION: Right * No evidence of malignancy with benign findings. RECOMMENDATIONS Right: Axilla * Clinical follow-up is recommended, and further management of palpable abnormalities or other focal signs or symptoms should be based on the results of clinical evaluation. If palpable abnormality or other concerning symptom persists or progresses, further clinical evaluation should be considered. COMMENTS: Findings and recommendations were conveyed to the patient during today's evaluation. OVERALL ASSESSMENT CATEGORY BI-RADS-2: Benign. ELECTRONICALLY SIGNED: Susan Lewis M.D. on 07/17/2025 at 08:26:16 AM PT Interpreting Station ID: [id number]
== END ==
LOC: US 07:24
PROVIDERS: PCP Family Medicine; Referring Provider Family Medicine; Visit Provider Student in an Organized Health Care Education/Training Program
DX: D05.12 Intraductal carcinoma in situ of left breast (principal)
CPT/HCPCS: 76882